=== PATIENT | male | born 1970 | race Caucasian/White ===

== ENCOUNTER 2022-11-09 18:47 | Emergency (ER) | payer MEDICARE, SELFPAY ==
[2022-11-09] VITALS (7 sets, daily range): BP systolic 130–167; BP diastolic 83–104; PULSE 86–144; RESP 18–29; TEMP 36.2; O2SAT 96–98; BMI 29.8
--- NOTE | 2022-11-09 18:55 | EDS_ITS ---
HPI History of Present Illness Chief Complaint: Unresponsive Informant: EMS Onset/Context/Timing Onset: Today Context: Sudden Onset Timing: Continuous Quality: Tonic-clonic Location: Generalized Worsened by: Nothing Relieved by: Narcan Narrative Narrative: Presents with unresponsiveness. EMS was called for possible stroke. Patient has a history of a prior stroke with left-sided deficits. Upon EMS arrival patient was unresponsive. EMS administered 2 mg of Narcan the patient became more awake and alert. Patient had no new neurodeficits by EMS. Upon transfer to the emergency department the patient had another episode where he became more unresponsive. EMS administered a repeat dose of Narcan. Patient had a seizure after this. Patient does have a history of seizure disorder per EMS. Patient currently is unresponsive and is postictal. Patient is maintaining his own airway. Patient is nonverbal. EMS also reports patient does have a history of substance abuse. EMS states that the seizure was generalized and tonic-clonic. PFSH PFS Medical History unable to obtain unable to obtain Home Medications amlodipine 10 mg tablet 10 mg PO DAILY 11/09/22 [History Last Taken Unknown] gabapentin 300 mg capsule 300 mg PO BID 11/09/22 [History Last Taken Unknown] gabapentin 300 mg capsule 300 mg PO QHS 11/09/22 [History Last Taken Unknown] hydrochlorothiazide 12.5 mg capsule 12.5 mg PO DAILY 11/09/22 [History Last Taken Unknown] lisinopril 40 mg tablet 40 mg PO BID 11/09/22 [History Last Taken Unknown] sertraline 100 mg tablet 100 mg PO DAILY 11/09/22 [History Last Taken Unknown] Allergy/AdvReac Type Severity Reaction Status Date / Time No Known Allergies Allergy Verified 11/09/22 20:30 Surgical History unable to obtain unable to obtain Social History Smoking Status: Unknown if ever smoked ROS ROS ED Review of Systems ROS Unobtainable: due to mental condition and due to mental status EXAM Physical Exam Const Vital Signs: 11/09/22 18:52 11/09/22 19:08 11/09/22 19:09 Temperature 97.1 F L Temperature Source Temporal Pulse Rate 144 H 137 H Respiratory Rate 25 H 29 H Blood Pressure 167/102 H 130/104 H Blood Pressure Mean 123 112 Pulse Ox 96 97 98 Oxygen Delivery Method Non-Rebreather Non-Rebreather Non-Rebreather Oxygen Flow Rate (L/min) 15 15 11/09/22 19:15 11/09/22 19:44 11/09/22 21:19 Temperature Temperature Source Pulse Rate 86 Respiratory Rate 21 H Blood Pressure 135/83 H Blood Pressure Mean 100 Pulse Ox 97 98 Oxygen Delivery Method Non-Rebreather Nasal Cannula Nasal Cannula Oxygen Flow Rate (L/min) 15 5 3 Positive well nourished and well developed General Appearance ED: well developed HEENT Reports moist mucous membranes HEENT Narrative: There is a superficial abrasion over the left lateral aspect of the tongue. There is no gapping of the wound margins. There is some mild bleeding noted. Chest Wall inspection of chest normal and palpation of chest normal Resp normal respiratory effort Auscultation: rhonchi Cardio regular rhythm Rate: tachycardic GI non-distended Auscultation: normoactive bowel sounds Palpation: soft Psych Mood & Affect: depressed Skin no rashes or lesions noted and no wounds MDM MDM MDM Narrative Medical decision making narrative: Patient was placed on continuous cardiac and pulse oximeter monitors. Patient was placed on nonrebreather mask. IV lines were established. Differential diagnosis includes seizure, stroke, substance abuse, cardiac dysrhythmia, cardiac ischemia, sepsis, pneumonia, and pulmonary embolism. EKG will be obtained to assess for cardiac dysrhythmia and cardiac ischemia. CT scan of the brain will be obtained to assess for cerebral hemorrhage and stroke. CBC will be obtained to assess for leukocytosis and anemia. Comprehensive metabolic profile will be obtained to assess for electrolyte abnormality, renal function, and hepatic function. Troponin will be obtained to assess for cardiac ischemia. 2-hour repeat troponin will be obtained to further assess for cardiac ischemia. Chest x-ray will be obtained to assess for pneumonia. D-dimer will be obtained to assess for pulmonary embolism. Arterial blood gas will be obtained to assess for acid-base status and respiratory status. Lab Data Lab results narrative: CBC was reviewed and showed a leukocytosis of 21.3. Comprehensive metabolic profile was reviewed and showed a creatinine of 1.73 and a BUN of 25. CO2 was 14 and anion gap was 23. Lactate was reviewed and was elevated at 13.9. High- sensitivity troponin was reviewed and was normal at 46. D-dimer was reviewed and was elevated at 3.52. Arterial blood gas was reviewed and shows a pH of 7.243 with a PCO2 of 35.9, PO2 of 185.4, bicarb of 15.5, and oxygen saturation of 99.4% on a nonrebreather mask. After IV fluids, basic metabolic profile was repeated along with lactate. These were reviewed and were improved. Lactate improved to 2.3. CO2 improved to 24. Anion gap was normal. Creatinine was normal at 1.27. Labs: Laboratory Results - last 24 hr 11/09/22 11/09/22 11/09/22 18:55 18:55 18:55 WBC 21.3 H RBC 5.92 Hgb 16.3 Hct 50.7 MCV 85.6 MCH 27.5 MCHC 32.1 RDW Std Deviation 42.6 RDW Coeff of Delfina 13.7 Plt Count 359 MPV 10.3 Immature Gran % (Auto) 1.100 H Neut % (Auto) 72.6 H Lymph % (Auto) 17.7 L [place] % (Auto) 5.5 Eos % (Auto) 2.3 Baso % (Auto) 0.8 Absolute Neuts (auto) 15.4 H Absolute Lymphs (auto) 3.77 Nucleated RBC % 0 D-Dimer Quant (PE/DVT) 3.52 H* Sodium 142 Potassium 3.6 Chloride 105 Carbon Dioxide 14.0 L Anion Gap 23 H BUN 25 H Creatinine 1.73 H Estim Creat Clear Calc 53.58 Est GFR (MDRD) Af Amer 53 L Est GFR (MDRD) Non-Af 44 L BUN/Creatinine Ratio 14.5 Glucose 198 H Lactic Acid Calcium 9.6 Total Bilirubin 0.50 AST 29 ALT 19 Alkaline Phosphatase 93 Troponin I High Sens 46 Total Protein 8.6 H Albumin 4.5 Globulin 4.1 Albumin/Globulin Ratio 1.1 11/09/22 11/09/22 11/09/22 18:55 21:56 22:17 WBC RBC Hgb Hct MCV MCH MCHC RDW Std Deviation RDW Coeff of Delfina Plt Count MPV Immature Gran % (Auto) Neut % (Auto) Lymph % (Auto) [place] % (Auto) Eos % (Auto) Baso % (Auto) Absolute Neuts (auto) Absolute Lymphs (auto) Nucleated RBC % D-Dimer Quant (PE/DVT) Sodium 141 Potassium 4.1 Chloride 107 Carbon Dioxide 24.0 Anion Gap 10 BUN 25 H Creatinine 1.27 Estim Creat Clear Calc 72.98 Est GFR (MDRD) Af Amer 76 Est GFR (MDRD) Non-Af 63 BUN/Creatinine Ratio 19.7 Glucose 91 Lactic Acid 13.9 H* 2.3 H* Calcium 8.8 Total Bilirubin AST ALT Alkaline Phosphatase Troponin I High Sens Total Protein Albumin Globulin Albumin/Globulin Ratio ABG Data ABG results: ABG 11/09/22 19:19 Specimen Type ART Sample Site L BRACHIAL pH 7.24 L Bicarbonate Actual 15.5 L Total CO2 17 Base Excess -12 L O2 Saturation 99 ABG pCO2 35.9 ABG pO2 185 H Matt Test NA O2 Delivery Device NRB Mask Crit Call To/Read Back Yes Blood Gas Notified Whom ED DOC Blood Gas Notified Time 1918 Radiography Chest X-Ray - ED: 1 View, Read by ED Physician, Read by Radiologist and No Acute Disease Diagnostic Testing: Clinical Impression(s) from Imaging Studies Brain CT 11/09/22 19:04 IMPRESSION: There are no acute findings. Chronic involutional changes of the brain. Electronically Signed: El Vizcaino MD at 19:32 EST , Chest X-Ray 11/09/22 19:30 IMPRESSION: No radiographic evidence of acute cardiopulmonary disease. Electronically Signed: El Vizcaino MD at 19:50 EST , Chest CTA 11/09/22 19:48 IMPRESSION: No demonstrated pulmonary embolism or arterial dissection. Electronically Signed: El Vizcaino MD at 21:08 EST , CT scan of the brain was obtained. There is no acute intracranial abnormality. This was interpreted by the radiologist and was also independently reviewed by myself. Portable 1 view chest x-ray was obtained. On my independent interpretation, lung short are clear. There is normal cardiac silhouette. Bony thorax is normal. There is no acute process noted. Radiologist also interpreted the x- ray and agrees. CTA of the chest was obtained because of the elevated D-dimer. On my interpretation, there is no evidence of pulmonary embolism or aortic dissection. There is no pneumothorax. Radiologist also interpreted the CTA of the chest and agrees. EKG Initial EKG: Attestation: I personally reviewed and interpreted this EKG as follows: Interpretation: Sinus Tachycardia (143) and Non-Specific ST Changes Comments: EKG was obtained. On my independent interpretation, it shows a sinus tachycardia with a rate of 143. [place] was normal. There are nonspecific ST-T wave changes in the lateral leads. There is evidence of left ventricular hypertrophy. Prior EKG tracings: not available for review Prior: No Prior Treatment and Re-Evaluation Narrative: Patient's heart rate also improved after 2 L of IV fluids. Patient is feeling better on reevaluation. Patient and family were advised of the findings. Patient and family were advised that the initial lab abnormalities were likely due to the seizure. Patient was instructed to follow-up with his primary care physician and neurologist in 3 to 5 days for reevaluation and possible adjustment of his antiepileptic medications. Patient and family understand and are agreeable with the plan. All questions were answered. Discharge Plan Triage Chief Complaint: Unresponsive ED Provider: Stalin Longo Dx/Rx/DC Orders Clinical Impression: Breakthrough seizure, Seizure disorder, Unresponsive episode Instructions: ED Seizure, Recurrent (Adult) Prescriptions: No Action sertraline 100 mg Tablet 100 mg PO DAILY amlodipine 10 mg Tablet 10 mg PO DAILY hydrochlorothiazide 12.5 mg Capsule 12.5 mg PO DAILY gabapentin 300 mg Capsule 300 mg PO BID gabapentin 300 mg Capsule 300 mg PO QHS lisinopril 40 mg Tablet 40 mg PO BID Primary Care Provider: Care Physician,No Primary Referrals: Care Physician,No Primary [Primary Care Provider] - Doctor,Your [Non-Staff] - 3-5 Days Disposition Disposition: Home, Self Care
--- NOTE | 2022-11-09 19:04 | CT_ITS ---
STUDY: CT BRAIN WITHOUT CONTRAST REASON FOR EXAM: Male, 52 years old. FOUND UNRESPONSIVE-LKW 45 MINS AGO,ALTERED MENTAL STATUS WITH LT SIDED DEFICITS HX:DRUG USE,STROKE,PRIOR CRAINIOTOMY Altered mental status Individualized dose optimization techniques were used for this CT. TECHNIQUE: Transaxial CT imaging of the brain was performed without administration of intravenous contrast material. COMPARISON: None FINDINGS: There are calcifications around the carotid artery. These are noted in the cavernous carotid arteries. There is a craniotomy/craniectomy. Normal soft tissues. Right basal ganglia and parietal lobe encephalomalacia. Compensatory enlargement of the right lateral ventricle. Prior right facial reconstruction plates. There is mild cerebral atrophy with widening of the extra-axial spaces and ventricular dilatation. There are areas of decreased attenuation within the white matter tracts of the supratentorial brain, consistent with microvascular disease changes. Normal basal ganglia and thalami. Normal brainstem. There is mild cerebellar atrophy. There is no intracranial hemorrhage. There are no findings of an acute ischemic infarction. Normal visualized paranasal sinuses. 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 ASPECTS Score for Acute Strokes: 07/16 CT/Brain/Head without Contrast IMPRESSION: There are no acute findings. Chronic involutional changes of the brain. Electronically Signed: El Vizcaino MD at 19:32 EST ,
--- NOTE | 2022-11-09 19:05 | EKG12_ITS ---
Test Reason : UNRESPONSIVE Blood Pressure : / mmHG Vent. Rate : 143 BPM Atrial Rate : 141 BPM P-R Int : 000 ms QRS Dur : 106 ms QT Int : 352 ms P-R-T Axes : 000 038 121 degrees QTc Int : 543 ms Atrial fibrillation Left ventricular hypertrophy with repolarization abnormality ( Narinder product ) Cannot rule out Septal infarct , age undetermined Abnormal ECG No previous ECGs available Confirmed by SUKHWINDER DOMINIQUE, MELANY ([id number]), editor dictionary [place] ([id number]) on 11/12/2022 11:13:15 AM Referred By: XIOMY Confirmed By:MELANY PRETTY MD
[2022-11-09] MEDS: 0.9% Normal Saline 1,000 ML 1000 ML IV ×2 (19:10→21:18)
[2022-11-09 19:16] LABS: Absolute Lymphocyte Count 3.77 X10^3/uL (0.83-4.51); Absolute Neutrophil Count 15.4 X10^3/uL (2.0-7.7); Basophil# 0.17 X10^3/uL; Basophil% 0.8 % (0-1); Eosinophil# 0.48 X10^3/uL; Eosinophils% 2.3 % (0-5); Hematocrit 50.7 % (40-54); Hemoglobin 16.3 g/dL (13.0-16.5); Lymphocyte # 3.77 X10^3/ul (0.83-4.51); Lymphocyte % 17.7 % (19-41); Mean Corp Hgb Conc 32.1 g/dL (32-36); Mean Corpuscular Hgb 27.5 pg (27.0-32.0); Mean Corpuscular Volume 85.6 fL (80-94); Mean Platelet Vol. 10.3 fl (6.2-12.0); Monocyte# 1.16 X10^3/uL; Monocyte% 5.5 % (0-10); NRBC Flagged by Analyzer 0 % (0-5); Neutrophil # 15.44 X10^3/uL (2.7-7.7); Neutrophil % 72.6 % (47-70); Platelet Count 359 K/mm3 (150-450); RBC Distribution Width CV 13.7 % (11.6-14.6); RBC Distribution Width SD 42.6 fl (35.1-43.9); Red Blood Count 5.92 M/mm3 (4.6-6.2); White Blood Count 21.3 K/mm3 (4.4-11.0)
[2022-11-09 19:29] LABS: D-Dimer Quantitative (DVT/PE) 3.52 FEU/ug/m (0.27-0.49)
--- NOTE | 2022-11-09 19:30 | RAD_ITS ---
EXAM: XR CHEST, 1 VIEW CLINICAL INDICATION: Dyspnea TECHNIQUE: Frontal view of the chest. This report was created using [employer] report generation technology. COMPARISON: None. FINDINGS: LUNGS AND PLEURAL SPACES: Unremarkable. No consolidation or edema. No pneumothorax. No effusion. HEART: Unremarkable. Cardiac silhouette not enlarged. MEDIASTINUM: Central airways and mediastinal contour are unremarkable. BONES/JOINTS: Unremarkable. SOFT TISSUES: Unremarkable. RAD/Chest 1 View (Portable) IMPRESSION: No radiographic evidence of acute cardiopulmonary disease. Electronically Signed: El Vizcaino MD at 19:50 EST ,
[2022-11-09 19:31] LABS: ALB/GLOB Ratio 1.1 RATIO (0.9-2.4); AST(SGOT) 29 U/L (15-37); Alanine Aminotransfer ALT/SGPT 19 U/L (16-61); Albumin, Serum 4.5 g/dL (3.2-5.0); Alkaline Phosphatase 93 U/L (45-117); Anion Gap 23 (5-15); BUN 25 mg/dL (7-18); BUN/Creat Ratio 14.5 RATIO (10-20); Calcium,Total 9.6 mg/dL (8.5-10.1); Chloride 105 mmol/L (98-107); Creatinine, Serum 1.73 mg/dL (0.70-1.30); EST Glomerular Filtration Rate 44 mL/min (>60); Est Glom Filt Rate - Afr Amer 53 mL/min (>60); Estimated Creatinine Clearance 53.58 ml/min; Globulin 4.1 g/dL (2.2-4.2); Glucose 198 mg/dL (74-106); Potassium 3.6 mmol/L (3.5-5.1); Protein, Total 8.6 g/dL (6.4-8.2); Sodium Level 142 mmol/L (136-145); Troponin-I HS 46 pg/mL (3.0-78.0)
[2022-11-09 19:33] LABS: Blood Gas Specimen Type ART; O2 Delivery Device NRB Mask; SITE L BRACHIAL
[2022-11-09 19:34] LABS: Base Excess -12 mmol/L (-2 to +2); Bicarbonate 15.5 mmol/L (22-26); PO2 185 mmHG (75-100); SO2 99 % (95-99); Time Given 1919; Total Carbon Dioxide 17 mmol/L; pCO2 35.9 mmHg (35-45); pH 7.24 (7.35-7.45)
[2022-11-09 19:38] LABS: Lactic Acid 13.9 mmol/L (0.4-1.9)
--- NOTE | 2022-11-09 19:45 | ED.RN ---
PT AWAKE, NOT FOLLOWING COMMANDS
--- NOTE | 2022-11-09 19:48 | CT_ITS ---
EXAM: CT ANGIOGRAPHY CHEST WITHOUT AND WITH INTRAVENOUS CONTRAST CLINICAL INDICATION: Elevated D-dimer TECHNIQUE: Helically acquired angiography images were obtained of the chest without and with intravenous contrast. This CT exam was performed using one or more of the following dose reduction techniques: automated exposure control, adjustment of the mA and/or kV according to patient size, and/or use of iterative reconstruction technique. This report was created using [employer] report generation technology. MIP reconstructed images were created and reviewed. CONTRAST: IV 100mL Isovue-370 RADIATION DOSE: CTDIvol = 17.40 mGy, DLP = 489.03 mGy-cm COMPARISON: None. FINDINGS: PULMONARY ARTERIES: Unremarkable. No demonstrated pulmonary embolism or arterial dissection. AORTA: There is atherosclerotic calcification of the aortic arch with tortuosity and elongation of the aortic arch and descending thoracic aorta. Normal in caliber. No evidence of dissection. GREAT VESSELS OF AORTIC ARCH: See above. LUNGS AND PLEURAL SPACES: Unremarkable. No mass. No consolidation or edema. No pleural effusion or thickening. No pneumothorax. HEART: There are calcifications of the coronary arteries. No pericardial effusion. No signs of right heart strain, ratio of right ventricle to left ventricle measures less than 1. MEDIASTINUM: Unremarkable. No mediastinal or hilar adenopathy. Esophagus is unremarkable. No hiatal hernia. THYROID: Unremarkable. No thyroid lesions. BONES/JOINTS: There are multi-level degenerative changes of the thoracic spine. No suspicious lytic or blastic abnormality. CT/CTA Chest W/WO Contrast IMPRESSION: No demonstrated pulmonary embolism or arterial dissection. Electronically Signed: El Vizcaino MD at 21:08 [facility] ,
[2022-11-09] MEDS: LORazepam 2 MG/ML Syringe 1 MG IV (19:59)
[2022-11-09 23:00] LABS: Anion Gap 10 (5-15); BUN 25 mg/dL (7-18); BUN/Creat Ratio 19.7 RATIO (10-20); Calcium,Total 8.8 mg/dL (8.5-10.1); Chloride 107 mmol/L (98-107); Creatinine, Serum 1.27 mg/dL (0.70-1.30); EST Glomerular Filtration Rate 63 mL/min (>60); Est Glom Filt Rate - Afr Amer 76 mL/min (>60); Estimated Creatinine Clearance 72.98 ml/min; Glucose 91 mg/dL (74-106); Potassium 4.1 mmol/L (3.5-5.1); Sodium Level 141 mmol/L (136-145)
[2022-11-09 23:03] LABS: Lactic Acid 2.3 mmol/L (0.4-1.9)
[2022-11-09 23:13] LABS: Reflex Lactate? Y
[2022-11-10 02:01] LABS: Reflex Lactate? Y
== END 2022-11-09 23:40 | disposition home or self-care (01) ==
PROVIDERS: Emergency Provider Emergency Medicine; Visit Provider Emergency Medicine
DX: G40.409 Other generalized epilepsy and epileptic syndromes, not intractable, without status epilepticus (principal); I69.354 Hemiplegia and hemiparesis following cerebral infarction affecting left non-dominant side; I10 Essential (primary) hypertension; Z79.899 Other long term (current) drug therapy
CPT/HCPCS: 36600; 70450; 71045; 71275; 80048; 80053; 82803; 83605; 84484; 85025; 85379; 93005; 96361; 96374; 99285; J7030; Q9967; A4216

== ENCOUNTER 2022-11-14 13:51 | Emergency (ER) | payer MEDICARE, SELFPAY ==
[2022-11-14 13:52] VITALS: BP 150/77; PULSE 76; RESP 16; TEMP 36.6; O2SAT 96; BMI 30.8
--- NOTE | 2022-11-14 14:00 | EKG12_ITS ---
Test Reason : CP Blood Pressure : / mmHG Vent. Rate : 076 BPM Atrial Rate : 076 BPM P-R Int : 192 ms QRS Dur : 094 ms QT Int : 372 ms P-R-T Axes : 041 005 -11 degrees QTc Int : 418 ms Normal sinus rhythm Voltage criteria for left ventricular hypertrophy ( R in aVL , Sokolow-Dee , Narinder product ) Septal infarct, age undetermined ST & T wave abnormality, consider inferior ischemia Abnormal ECG Confirmed by SUKHWINDER DOMINIQUE, MELANY ([id number]), assignment editor WESTLEY ECHAVARRIA ([id number]) on 11/16/2022 10:05:01 AM Referred By: SHAUN Confirmed By:MELANY PRETTY MD
[2022-11-14 14:12] VITALS: O2SAT 96
[2022-11-14 14:14] VITALS: BP 154/93; PULSE 85; RESP 19; O2SAT 97
--- NOTE | 2022-11-14 14:14 | EDS_ITS ---
HPI History of Present Illness Chief Complaint: Chest Pain Narrative Narrative: 52-year-old male past medical history of seizure disorder, quit smoking over 5 years ago, presents with sharp, stabbing chest pain in the center of his chest that has had for the last 2 days. He denies any radiation. No nausea or vomiting. No shortness of breath or diaphoresis. No leg swelling. He denies any exacerbating or alleviating factors. He presents with his mother because of this pain that he has been having and is not sure from what it may be originating. Its been relatively constant. [facility] Medical History Seizure Home Medications amlodipine 10 mg tablet 10 mg PO DAILY 11/09/22 [History Last Taken Unknown] gabapentin 300 mg capsule 300 mg PO BID 11/09/22 [History Last Taken Unknown] gabapentin 300 mg capsule 300 mg PO QHS 11/09/22 [History Last Taken Unknown] hydrochlorothiazide 12.5 mg capsule 12.5 mg PO DAILY 11/09/22 [History Last Taken Unknown] lisinopril 40 mg tablet 40 mg PO BID 11/09/22 [History Last Taken Unknown] sertraline 100 mg tablet 100 mg PO DAILY 11/09/22 [History Last Taken Unknown] Allergy/AdvReac Type Severity Reaction Status Date / Time prochlorperazine AdvReac Other Verified 11/14/22 13:54 [From Compazine] Social History Smoking Status: Unknown if ever smoked ROS ROS ED ROS Narrative Constitutional: No fever, no chills. HEENT: No sore throat. No neck pain. No loss of vision. No rhinorrhea. Cardiovascular: Sharp, stabbing, midsternal chest pain. No palpitations. No pedal edema. Respiratory: No cough, no shortness of breath. Abdominal: No abdominal pain. No nausea. No vomiting. Genitourinary: No dysuria. No hematuria. Musculoskeletal: No myalgias. No arthralgias. Neurologic: No headaches. No dizziness. No lightheadedness. Skin: No rash. No change in color. Psychiatric: No depression. No anxiety. EXAM Physical Exam Narrative Exam Narrative: Afebrile. Vital signs noted. HEENT: Normocephalic. Atraumatic. PERRL, EOMI. Neck soft and supple. No point tenderness or step off. Cardiovascular: Regular rate and rhythm. No murmurs, rubs, or gallops appreciated. Respiratory: No tachypnea. Lungs clear to auscultation bilaterally. Gastrointestinal: Abdomen soft, nontender, with normoactive bowel sounds. No rebound or guarding. Neurological: Awake. Alert. Nonfocal, nonlateralizing. Mild speech impediment. Skin: No rash. Normal color. No pallor. Musculoskeletal: No pedal edema. Full range of motion extremities. Const Vital Signs: 11/14/22 13:52 11/14/22 14:12 11/14/22 14:14 Temperature 97.8 F Temperature Source Temporal Pulse Rate 76 85 Respiratory Rate 16 19 H Blood Pressure 150/77 H 154/93 H Blood Pressure Mean 101 113 Pulse Ox 96 96 97 Oxygen Delivery Method Room Air Room Air Room Air 11/14/22 16:00 Temperature Temperature Source Pulse Rate 69 Respiratory Rate 16 Blood Pressure 134/86 H Blood Pressure Mean 102 Pulse Ox 99 Oxygen Delivery Method Room Air Heart Score History: Slightly/Non-Suspicious ECG: Normal Age: >45 - <65 years Risk Factors: 1 or 2 Risk Factors Troponin: </= Normal Limit Score: 2 MDM MDM MDM Narrative Medical decision making narrative: Chest pain work-up was pursued. EKG was obtained and interpreted by myself which demonstrates normal sinus rhythm at 76 bpm without ectopy or acute ST changes, no STEMI. He does have T wave inversion in leads III and aVF which I think is nonspecific. I will obtain a CBC, BMP, 2-hour troponin for rule out after baseline, and a D-dimer. He was bolused normal saline 1 L intravenously. He does have elevated blood pressure of 150/77, but in review of his medications he is on HCTZ and lisinopril. He is also supposed to be taking amlodipine. I reviewed the patient's prior outpatient records/EMR. He was just seen here 5 days ago for an unresponsive episode. He did have an elevated D-dimer at that time. I did note that CTA was obtained and was -5 days ago. I will cancel this D-dimer as he just had a recent D-dimer and CTA of the chest that was negative. I had called laboratory and canceled it. However, even though I had canceled the order in the computer, laboratory called with the result stating that they ran it anyway, and it is elevated at 1.1. This is lower than before. Once again, I think this is nonspecific and has nothing to do with his chest pain as he just had a CTA within the last 5 days. I do not feel that repeat imaging is indicated. I reviewed his laboratory work. WBC count 11.6, hemoglobin normal at 15.5, hematocrit 44.6, platelet count normal at 283. BMP was reviewed and shows normal sodium of 142, potassium normal at 3.9, BUN slightly elevated at 22 which think is nonspecific and creatinine 1.2. High-sensitivity troponin is 48. I will repeat a 2-hour troponin as although he states this has been relatively constant for the last 2 days, he may have hinted that it was intermittent. His repeat troponin at 2 hours is 50 for a delta of 2, and still normal. At this point in time, I feel he be discharged safely home with follow-up. Return instructions to the emergency department were reviewed. Disposition is discharged home in stable condition. Lab Data Attestation: I reviewed the patient's lab results. Labs: Laboratory Results - last 24 hr 11/14/22 11/14/22 11/14/22 14:09 14:09 14:09 WBC 11.6 H RBC 5.43 Hgb 15.5 Hct 44.6 MCV 82.1 MCH 28.5 MCHC 34.8 D RDW Std Deviation 39.9 RDW Coeff of Delfina 13.6 Plt Count 283 MPV 9.8 Immature Gran % (Auto) 0.300 Neut % (Auto) 80.4 H Lymph % (Auto) 9.1 L [place] % (Auto) 8.4 Eos % (Auto) 1.1 Baso % (Auto) 0.7 Absolute Neuts (auto) 9.3 H Absolute Lymphs (auto) 1.05 Nucleated RBC % 0 D-Dimer Quant (PE/DVT) 1.10 H* Sodium 142 Potassium 3.9 Chloride 107 Carbon Dioxide 27.0 Anion Gap 8 BUN 22 H Creatinine 1.20 Estim Creat Clear Calc 72.66 Est GFR (MDRD) Af Amer 81 Est GFR (MDRD) Non-Af 67 BUN/Creatinine Ratio 18.3 Glucose 97 Calcium 9.6 Troponin I High Sens 48 11/14/22 16:15 WBC RBC Hgb Hct MCV MCH MCHC RDW Std Deviation RDW Coeff of Delfina Plt Count MPV Immature Gran % (Auto) Neut % (Auto) Lymph % (Auto) [place] % (Auto) Eos % (Auto) Baso % (Auto) Absolute Neuts (auto) Absolute Lymphs (auto) Nucleated RBC % D-Dimer Quant (PE/DVT) Sodium Potassium Chloride Carbon Dioxide Anion Gap BUN Creatinine Estim Creat Clear Calc Est GFR (MDRD) Af Amer Est GFR (MDRD) Non-Af BUN/Creatinine Ratio Glucose Calcium Troponin I High Sens 50 Radiography Diagnostic Testing: Clinical Impression(s) from Imaging Studies Chest X-Ray 11/14/22 14:33 IMPRESSION: No acute abnormality is seen. Electronically Signed: Miky Simon MD at 14:49 EST , Discharge Plan Triage Chief Complaint: Chest Pain ED Provider: Brad Powell Dx/Rx/DC Orders Clinical Impression: Chest pain, Seizure disorder, Elevated d-dimer Instructions: ED Chest Pain, Uncertain Cause Prescriptions: No Action sertraline 100 mg Tablet 100 mg PO DAILY amlodipine 10 mg Tablet 10 mg PO DAILY hydrochlorothiazide 12.5 mg Capsule 12.5 mg PO DAILY gabapentin 300 mg Capsule 300 mg PO BID gabapentin 300 mg Capsule 300 mg PO QHS lisinopril 40 mg Tablet 40 mg PO BID Primary Care Provider: Care Physician,No Primary Referrals: Care Physician,No Primary [Primary Care Provider] - Activity Restrictions/Additional Instructions: Follow-up with primary care physician as soon as possible. Disposition Disposition: Home, Self Care
[2022-11-14 14:16] LABS: Absolute Lymphocyte Count 1.05 X10^3/uL (0.83-4.51); Absolute Neutrophil Count 9.3 X10^3/uL (2.0-7.7); Basophil# 0.08 X10^3/uL; Basophil% 0.7 % (0-1); Eosinophil# 0.13 X10^3/uL; Eosinophils% 1.1 % (0-5); Hematocrit 44.6 % (40-54); Hemoglobin 15.5 g/dL (13.0-16.5); Lymphocyte # 1.05 X10^3/ul (0.83-4.51); Lymphocyte % 9.1 % (19-41); Mean Corp Hgb Conc 34.8 g/dL (32-36); Mean Corpuscular Hgb 28.5 pg (27.0-32.0); Mean Corpuscular Volume 82.1 fL (80-94); Mean Platelet Vol. 9.8 fl (6.2-12.0); Monocyte# 0.97 X10^3/uL; Monocyte% 8.4 % (0-10); NRBC Flagged by Analyzer 0 % (0-5); Neutrophil # 9.33 X10^3/uL (2.7-7.7); Neutrophil % 80.4 % (47-70); Platelet Count 283 K/mm3 (150-450); RBC Distribution Width CV 13.6 % (11.6-14.6); RBC Distribution Width SD 39.9 fl (35.1-43.9); Red Blood Count 5.43 M/mm3 (4.6-6.2); White Blood Count 11.6 K/mm3 (4.4-11.0)
[2022-11-14] MEDS: Aspirin 81 MG TAB.CHEW 324 MG PO (14:18)
[2022-11-14] MEDS: 0.9% Normal Saline 1,000 ML 1000 ML IV (14:18)
[2022-11-14 14:33] LABS: Anion Gap 8 (5-15); BUN 22 mg/dL (7-18); BUN/Creat Ratio 18.3 RATIO (10-20); Calcium,Total 9.6 mg/dL (8.5-10.1); Chloride 107 mmol/L (98-107); EST Glomerular Filtration Rate 67 mL/min (>60); Est Glom Filt Rate - Afr Amer 81 mL/min (>60); Estimated Creatinine Clearance 72.66 ml/min; Glucose 97 mg/dL (74-106); Potassium 3.9 mmol/L (3.5-5.1); Sodium Level 142 mmol/L (136-145); Troponin-I HS 48 pg/mL (3.0-78.0)
--- NOTE | 2022-11-14 14:33 | RAD_ITS ---
STUDY: X-RAY CHEST REASON FOR EXAM: Male, 52 years old. Chest pain TECHNIQUE: Single AP portable view of the chest. COMPARISON: Comparison is made with prior study 11/09/2002. FINDINGS: EKG electrodes are seen. The lungs are clear and expanded. There is no demonstrated pleural abnormality. Normal size heart. Calcified left hilar lymph nodes. Normal visualized pulmonary arteries. There is atherosclerotic calcification of the aortic arch with tortuosity. There are diffuse degenerative changes of the visualized thoracic spine. Normal visualized ribs, clavicles, and shoulders. There is no demonstrated abnormality of the visualized soft tissue structures of the upper abdomen. RAD/Chest 1 View (Portable) IMPRESSION: No acute abnormality is seen. Electronically Signed: Miky Simon MD at 14:49 EST ,
[2022-11-14 16:00] VITALS: BP 134/86; PULSE 69; RESP 16; O2SAT 99
[2022-11-14 16:39] LABS: Troponin-I HS 50 pg/mL (3.0-78.0)
[2022-11-14 17:00] VITALS: BP 134/86; PULSE 68; RESP 15; O2SAT 99
== END 2022-11-14 17:14 | disposition home or self-care (01) ==
PROVIDERS: Emergency Provider Emergency Medicine; Visit Provider Emergency Medicine
DX: R07.9 Chest pain, unspecified (principal); G40.909 Epilepsy, unspecified, not intractable, without status epilepticus; Z87.891 Personal history of nicotine dependence; R79.89 Other specified abnormal findings of blood chemistry; R94.31 Abnormal electrocardiogram [ECG] [EKG]; Z79.899 Other long term (current) drug therapy; I10 Essential (primary) hypertension
CPT/HCPCS: 71045; 80048; 84484; 85025; 85379; 93005; 96360; 99284; J7030; A4216

== ENCOUNTER 2023-07-08 08:26 | Emergency (ER) | payer MEDICARE, SELFPAY ==
[2023-07-08 08:27] VITALS: BP 127/66; PULSE 88; RESP 18; TEMP 36.6; O2SAT 98; BMI 27.3
--- NOTE | 2023-07-08 08:54 | RAD_ITS ---
STUDY: X-RAY - LEFT HUMERUS REASON FOR EXAM: Male, 52 years old. Bruising and swelling. TECHNIQUE: 4 view(s) of the humerus. COMPARISON: None. FINDINGS: Subacute impacted fracture of the surgical neck of the proximal humerus with bony callus formation. Nondisplaced fracture of the distal lateral aspect of the left clavicle. Healing fracture of the left third rib. Blunting of the left cusp angle with increased markings at the left lung base. RAD/Humerus min 2 Views IMPRESSION: Healing nondisplaced impacted fracture of the gingival neck of the proximal left humerus with bony callus formation. Nondisplaced fracture of the distal portion of the left clavicle. A healing fracture of the left third rib. Electronically Signed: Miky Simon MD at 9:23 EDT ,
--- NOTE | 2023-07-08 08:58 | EX.ED.UPPERE ---
HPI History of Present Illness Chief Complaint: Upper Extremity Injury Informant: patient Narrative Narrative: 52-year-old male presenting to the emergency department chief complaint of left arm injury. Patient states that for the past 8 days he has had bruising of the left upper extremity. He denies any known injury. He states that he has limited range of motion. Patient does not know previous medical history or medications. I see in the computer that he has had prior stroke with left-sided deficits included flaccid left arm. He also has a reported seizure history. [facility] Medical History (Updated 07/08/23 @ 08:[address] Vinicio Sauceda DO) CVA (cerebral vascular accident) Seizure Home Medications amlodipine 10 mg tablet 10 mg PO DAILY 11/09/22 [History Last Taken Unknown] gabapentin 300 mg capsule 300 mg PO BID 11/09/22 [History Last Taken Unknown] gabapentin 300 mg capsule 300 mg PO QHS 11/09/22 [History Last Taken Unknown] hydrochlorothiazide 12.5 mg capsule 12.5 mg PO DAILY 11/09/22 [History Last Taken Unknown] lisinopril 40 mg tablet 40 mg PO BID 11/09/22 [History Last Taken Unknown] sertraline 100 mg tablet 100 mg PO DAILY 11/09/22 [History Last Taken Unknown] Allergy/AdvReac Type Severity Reaction Status Date / Time prochlorperazine AdvReac Other Verified 07/08/23 08:29 [From Compazine] Social History Smoking Status: Unknown if ever smoked ROS [facility] ED Constitutional Constitutional ED: Denies chills, fever(s) or weight loss Eyes Eyes: Denies change in vision or diplopia ENT ENT ED: Denies ear pain, rhinorrhea or sore throat Cardiovascular Cardiovascular: Denies chest pain, orthopnea, palpitations or racing heartbeat Respiratory/Chest Respiratory/Chest: Denies cough, dyspnea or orthopnea Gastrointestinal Gastrointestinal: Denies abdominal pain, diarrhea, nausea or vomiting Genitourinary Genitourinary ED: Denies dysuria, hematuria or urinary frequency Musculoskeletal Musculoskeletal: Reports other Details: See history of present illness ; Denies arthralgias or myalgias Integumentary Reports other Details: Left arm bruising ; Denies abscess or rash Neurologic Neurologic: Denies headache(s) or weakness Psychiatric Psychiatric: Denies anxiety, depression, suicidal ideation or suicidal thoughts Endocrine Endocrinology: Denies polydipsia, polyphagia or polyuria Allergic/Immunologic Allergic/Immunologic ED: Denies mouth swelling, tongue swelling or urticaria EXAM Physical Exam Const Vital Signs: 07/08/23 08:27 Temperature 97.9 F Temperature Source Temporal Pulse Rate 88 Respiratory Rate 18 Blood Pressure 127/66 H Blood Pressure Mean 86 Pulse Ox 98 Oxygen Delivery Method Room Air Positive well nourished and well developed General Appearance ED: well developed HEENT Reports normocephalic, head/scalp atraumatic and moist mucous membranes Eyes PERRL and EOMs intact bilaterally Neck no lymphadenopathy, supple and no JVD Resp normal respiratory effort and clear to auscultation bilaterally Cardio regular rate, regular rhythm and no murmurs GI normal to inspection, nondistended, normoactive bowel sounds and non-tender Palpation: soft Back/Spine no CVA tenderness and normal ROM Extremity Extremity Narrative: Left arm is flaccid. There appears to be empty sulcus. There is purple and light green ecchymosis along the anterior medial aspect of the left arm and forearm. Mild swelling. Atrophy of musculature. Neuro oriented x3 Sensorium / Orientation: alert Psych mental status grossly normal Mood & Affect: Negative for depressed or tearful Skin no rashes or lesions noted and no wounds MDM MDM MDM Narrative Medical decision making narrative: My interpretation of the plain films of the left shoulder is a impacted fracture of the proximal left humerus. There also appears to be a clavicular fracture and age-indeterminate rib fractures. My interpretation of the plain films of the left humerus is a proximal humerus fracture Patient will be placed in a sling. He will follow-up with orthopedics. I will write for a few [place]. Given the bruising on the anterior chest clavicle and the arm these are most likely recent injuries. He does not recall any known trauma. He states while he has had 2 seizures in 6 years he does not recall having a recent seizure. He has not seen orthopedics locally before. Discharge Plan Triage Chief Complaint: Upper Extremity Injury ED Provider: Vinicio Sauceda Dx/Rx/DC Orders Prescriptions: No Action sertraline 100 mg Tablet 100 mg PO DAILY amlodipine 10 mg Tablet 10 mg PO DAILY hydrochlorothiazide 12.5 mg Capsule 12.5 mg PO DAILY gabapentin 300 mg Capsule 300 mg PO BID gabapentin 300 mg Capsule 300 mg PO QHS lisinopril 40 mg Tablet 40 mg PO BID Primary Care Provider: Care Physician,No Primary Referrals: Care Physician,No Primary [Primary Care Provider] -
--- NOTE | 2023-07-08 09:05 | RAD_ITS ---
STUDY: X-RAY - LEFT SHOULDER REASON FOR EXAM: Male, 52 years old. Injury TECHNIQUE: 2 view(s) of the shoulder. COMPARISON: None. FINDINGS: Normal glenohumeral articulation. Normal acromioclavicular joint. Normal acromion. Nondisplaced fracture of the distal aspect of the left clavicle. Healing nondisplaced impacted fracture of the surgical neck of the proximal left humerus. Healing fractures of the left third and fifth ribs. The soft tissue structures are unremarkable. Normal visualized pulmonary apex. RAD/Shoulder min 2 Views IMPRESSION: Healing nondisplaced impacted fracture of the proximal surgical neck of the left humerus. Left clavicular fracture. Healing left-sided rib fractures. Electronically Signed: Miky Simon MD at 9:24 EDT ,
== END 2023-07-08 10:10 | disposition home or self-care (01) ==
PROVIDERS: Emergency Provider Emergency Medicine; Visit Provider Emergency Medicine
DX: S42.202A Unspecified fracture of upper end of left humerus, initial encounter for closed fracture (principal); I69.352 Hemiplegia and hemiparesis following cerebral infarction affecting left dominant side; G40.909 Epilepsy, unspecified, not intractable, without status epilepticus; Z79.899 Other long term (current) drug therapy; S42.009A Fracture of unspecified part of unspecified clavicle, initial encounter for closed fracture
CPT/HCPCS: 73030; 73060; 99283

== ENCOUNTER 2023-07-16 14:24 | Emergency (ER) | payer MEDICARE, SELFPAY ==
[2023-07-16 14:26] VITALS: BP 145/111; PULSE 111; RESP 18; TEMP 36.5; O2SAT 99
--- NOTE | 2023-07-16 16:35 | RAD_ITS ---
INDICATION: INFECTION EXAMINATION/TECHNIQUE: X-RAY - RIGHT XR Hand 3 VIEWS COMPARISON: FINDINGS: SOFT TISSUES: Soft tissue swelling of the thumb. No radiopaque foreign body. BONES/JOINTS: Dislocation of the thumb at the interphalangeal joint with possible fracture .. No sclerotic or destructive changes observed. RAD/Hand Min 3 Views IMPRESSION: Dislocated thumb at the interphalangeal joint with possible fracture involving the base of the distal phalanx. Electronically Signed: Guillermo Gr DO at 17:06 EDT ,
--- NOTE | 2023-07-16 16:40 | EX.ED.DYSGE1 ---
HPI History of Present Illness Chief Complaint: Cellulitis Informant: patient Narrative Narrative: 52-year-old male presenting to the emergency room with right thumb infection. Patient states that he is unsure of what he did. He states the injury occurred 3 days ago. He notes that today it became substantially worse. He notes swelling and inability to move the thumb pain. He has had prior hemorrhagic stroke affecting the left side of his body. He denies any other medical problems. He was recently seen for a left proximal humerus fracture. He was placed in the sling was to follow-up with orthopedics. He does not know where the sling is at at this time. He is unsure of his last tetanus. [facility] Medical History (Updated 07/16/23 @ 17:[address] Vinicio Sauceda DO) Hemorrhagic stroke Allergy/AdvReac Type Severity Reaction Status Date / Time prochlorperazine Allergy Other Verified 07/16/23 14:26 [From Compazine] Social History Smoking Status: Never smoker ROS ROS ED Constitutional Constitutional ED: Denies chills, fever(s) or weight loss Eyes Eyes: Denies change in vision or diplopia ENT ENT ED: Denies ear pain, rhinorrhea or sore throat Cardiovascular Cardiovascular: Denies chest pain, orthopnea, palpitations or racing heartbeat Respiratory/Chest Respiratory/Chest: Denies cough, dyspnea or orthopnea Gastrointestinal Gastrointestinal: Denies abdominal pain, diarrhea, nausea or vomiting Genitourinary Genitourinary ED: Denies dysuria, hematuria or urinary frequency Musculoskeletal Musculoskeletal: Reports other Details: Right thumb swelling and pain ; Denies arthralgias or myalgias Integumentary Reports rash; Denies abscess Neurologic Neurologic: Denies headache(s) or weakness Psychiatric Psychiatric: Denies anxiety, depression, suicidal ideation or suicidal thoughts Endocrine Endocrinology: Denies polydipsia, polyphagia or polyuria Allergic/Immunologic Allergic/Immunologic ED: Denies mouth swelling, tongue swelling or urticaria EXAM Physical Exam Const Vital Signs: 07/16/23 14:26 07/16/23 17:07 Temperature 97.7 F L Temperature Source Temporal Pulse Rate 111 H 84 Respiratory Rate 18 18 Blood Pressure 145/111 H 146/72 H Blood Pressure Mean 122 96 Pulse Ox 99 97 Oxygen Delivery Method Room Air Room Air Positive well nourished and well developed General Appearance ED: well developed HEENT Reports normocephalic, head/scalp atraumatic and moist mucous membranes Eyes PERRL and EOMs intact bilaterally Neck no lymphadenopathy, supple and no JVD Resp normal respiratory effort and clear to auscultation bilaterally Cardio regular rate, regular rhythm and no murmurs GI normal to inspection, nondistended, normoactive bowel sounds and non-tender Palpation: soft Back/Spine no CVA tenderness and normal ROM Extremity Extremity Narrative: Right thumb is 3-4 times the size of the left thumb. Is diffusely erythematous extending up the dorsum of the hand along the first metacarpal. He has no ability to flex or extend. He notes significant pain with attempted flexion. There is a wound that appears at 1 point it was an L-shaped laceration that is now dehisced with black eschar. This is located on the volar surface. There is purulence draining from this wound. There is no lymphangitic streaking. General Extremety ED: Negative for edema General Extremity: Negative for edema Neuro oriented x3 Neuro Narrative: There are chronic changes associated with a right-sided CVA/left hemiparesis Sensorium / Orientation: alert Psych mental status grossly normal Mood & Affect: Negative for depressed or tearful Skin no rashes or lesions noted and no wounds MDM MDM MDM Narrative Medical decision making narrative: My interpretation of the plain films of the right hand is a fracture dislocation of the distal phalanx of the thumb. Soft tissue swelling noted. Adacel was administered. White count 8.9. Glucose 103. Cultures of the wound were obtained. Blood cultures were obtained. Patient received vancomycin and Zosyn after discussion with hand surgery (Dr. Hercules from [facility]). Patient does not have a preference for tertiary care hospitals and [facility] was contacted who has accepted in transfer. Lab Data Attestation: I reviewed the patient's lab results. Labs: Laboratory Results - last 24 hr 07/16/23 16:20 WBC 8.9 RBC 4.32 L Hgb 12.1 L Hct 35.4 L MCV 81.9 MCH 28.0 MCHC 34.2 RDW Std Deviation 39.8 RDW Coeff of Delfina 13.2 Plt Count 293 MPV 10.0 Immature Gran % (Auto) 0.700 Neut % (Auto) 73.1 H Lymph % (Auto) 14.5 L [place] % (Auto) 9.1 Eos % (Auto) 2.2 Baso % (Auto) 0.4 Absolute Neuts (auto) 6.5 Absolute Lymphs (auto) 1.29 Nucleated RBC % 0 Sodium 138 Potassium 3.4 L Chloride 106 Carbon Dioxide 22.0 Anion Gap 10 BUN 29 H Creatinine 1.18 Estim Creat Clear Calc 76.22 Est GFR (MDRD) Af Amer 83 Est GFR (MDRD) Non-Af 68 BUN/Creatinine Ratio 24.6 H Glucose 103 Calcium 9.5 Total Bilirubin 0.70 AST 12 L ALT 17 Alkaline Phosphatase 172 H Total Protein 7.5 Albumin 3.4 Globulin 4.1 Albumin/Globulin Ratio 0.8 L Radiography Diagnostic Testing: Clinical Impression(s) from Imaging Studies Hand X-Ray 07/16/23 16:35 IMPRESSION: Dislocated thumb at the interphalangeal joint with possible fracture involving the base of the distal phalanx. Electronically Signed: Guillermo Gr DO at 17:06 EDT Reading Location ID and State: [facility] / [place] Tel [phone], Service support , Discharge Plan Triage Chief Complaint: Cellulitis ED Provider: Vinicio Sauceda Dx/Rx/DC Orders Clinical Impression: Open fracture dislocation of right thumb, Cellulitis of left thumb Disposition Disposition: Acute Care Hospital Discharge Location: [facility]
[2023-07-16 17:02] LABS: Absolute Lymphocyte Count 1.29 X10^3/uL (0.83-4.51); Absolute Neutrophil Count 6.5 X10^3/uL (2.0-7.7); Basophil# 0.04 X10^3/uL; Basophil% 0.4 % (0-1); Eosinophils% 2.2 % (0-5); Hematocrit 35.4 % (40-54); Hemoglobin 12.1 g/dL (13.0-16.5); Lymphocyte # 1.29 X10^3/ul (0.83-4.51); Lymphocyte % 14.5 % (19-41); Mean Corp Hgb Conc 34.2 g/dL (32-36); Mean Corpuscular Volume 81.9 fL (80-94); Monocyte# 0.81 X10^3/uL; Monocyte% 9.1 % (0-10); NRBC Flagged by Analyzer 0 % (0-5); Neutrophil # 6.51 X10^3/uL (2.7-7.7); Neutrophil % 73.1 % (47-70); Platelet Count 293 K/mm3 (150-450); RBC Distribution Width CV 13.2 % (11.6-14.6); RBC Distribution Width SD 39.8 fl (35.1-43.9); Red Blood Count 4.32 M/mm3 (4.6-6.2); White Blood Count 8.9 K/mm3 (4.4-11.0)
[2023-07-16 17:07] VITALS: BP 146/72; PULSE 84; RESP 18; O2SAT 97; BMI 26.5
[2023-07-16 17:13] LABS: ALB/GLOB Ratio 0.8 RATIO (0.9-2.4); AST(SGOT) 12 U/L (15-37); Alanine Aminotransfer ALT/SGPT 17 U/L (16-61); Albumin, Serum 3.4 g/dL (3.2-5.0); Alkaline Phosphatase 172 U/L (45-117); Anion Gap 10 (5-15); BUN 29 mg/dL (7-18); BUN/Creat Ratio 24.6 RATIO (10-20); Calcium,Total 9.5 mg/dL (8.5-10.1); Chloride 106 mmol/L (98-107); Creatinine, Serum 1.18 mg/dL (0.70-1.30); EST Glomerular Filtration Rate 68 mL/min (>60); Est Glom Filt Rate - Afr Amer 83 mL/min (>60); Estimated Creatinine Clearance 76.22 ml/min; Globulin 4.1 g/dL (2.2-4.2); Glucose 103 mg/dL (74-106); Potassium 3.4 mmol/L (3.5-5.1); Protein, Total 7.5 g/dL (6.4-8.2); Sodium Level 138 mmol/L (136-145)
--- NOTE | 2023-07-16 17:33 | NURSING ---
MADE INITIAL PHONE CALL TO [facility]. TALKED TO WILLIAM
[2023-07-16] MEDS: Piperacil/Tazobactam 4.5 GM in 0.9% Normal Saline (100mL MB+) 100 ML IV (18:09)
[2023-07-16] MEDS: Diphth,Pertuss(Acell),Tet Vac 0.5 ML Vial IM (18:44)
[2023-07-16] MEDS: Vancomycin HCl 2,000 MG in 0.9% Normal Saline (500mL Bag) 500 ML 250 MG IV (18:44)
[2023-07-16 19:04] VITALS: BP 145/70; PULSE 80; RESP 18; O2SAT 95
[2023-07-16 20:45] VITALS: BP 118/79; PULSE 74; RESP 16; TEMP 37.2; O2SAT 97
[2023-07-16 21:43] VITALS: BP 118/79; PULSE 74; RESP 16; TEMP 37.6; O2SAT 97
== END 2023-07-16 21:45 | disposition short-term general hospital (02) ==
PROVIDERS: Emergency Provider Emergency Medicine; Visit Provider Emergency Medicine
DX: S62.521B Displaced fracture of distal phalanx of right thumb, initial encounter for open fracture (principal); I69.352 Hemiplegia and hemiparesis following cerebral infarction affecting left dominant side; Z23 Encounter for immunization; L03.011 Cellulitis of right finger
CPT/HCPCS: 73130; 80053; 85025; 87040; 87070; 87077; 87186; 87205; 90471; 96365; 96366; 96367; 99283; J7040; J7050; A4216

== ENCOUNTER 2023-07-24 21:07 | Inpatient (IN) | payer MEDICARE, MEDICAID, SELFPAY ==
[2023-07-24 21:39] VITALS: BP 146/71; PULSE 55; RESP 16; TEMP 37.2; O2SAT 97; BMI 26.9
--- NOTE | 2023-07-24 21:39 | PCM.HP.STD ---
HPI - General General Date of Admission: 07/24/23 Date of Service: 07/25/23 Chief Complaint: Here for rehabilitation, intravenous antibiotics. HPI Narrative 07/16/2023 DINA BANKS, is a 52 Male who presents to [facility] Emergency Department for cellulitis. Right thumb infection, injury 3 days ago, infection worse. Swelling, unable to move right thumb. Recent left proximal humerus fracture, treated with sling. X-ray shows right thumb dislocation/fracture. Adacel given, WBC 8.9, cultures sent, blood cultures sent. Vancomycin, Zosyn given. Transfer to [facility] for Ortho Hand consultation. 07/16/2023 Admit to [facility]. 07/17/2023 Dr. Hercules performed irrigation thumb with excisional debridement skin subtendon tissue 5cm x 2cm. Irrigation of IP joint right thumb. Reduction with pinning of IP joint. Vancomycin/Zosyn right thumb cellulitis. IV fluids for high anion gap metabolic acidosis. 07/18/2023 Echo LV size normal. Left ventricular systolic function normal. EF 75%. Moderately severe mitral valve regurgitation. 07/22/2023 Continue IV Ertapenem thru 08/28/2023. 07/17/2023 Right hand tissue culture MSSA, E. Cloacae, Pseudo escherichia vulneris. PICC line ordered. 07/24/2023 Admit to TCU with debility, here for rehablitation, strengthening, intravenous antibiotics, prior to discharge home alone. [facility] Medical History (Updated 07/24/23 @ 21:[address] Rasheed Thomason MD) Cellulitis of right thumb Debility Dysarthria Expressive aphasia Hemorrhagic stroke Left hemiparesis Allergy/AdvReac Type Severity Reaction Status Date / Time prochlorperazine Allergy Other Verified 07/16/23 14:26 [From Compazine] Social History (Updated 07/24/23 @ 21:[address] Rasheed Thomason MD) household members: none Smoking Status: Never smoker alcohol intake: never substance use type: does not use ROS Constitutional Constitutional: Denies chills, fever(s) or weight gain ENT HEENT: Denies headache(s), nasal congestion or nasal discharge Cardiovascular Cardiovascular: Denies chest pain or palpitations Respiratory/Chest Respiratory/Chest: Denies cough, excessive phlegm production or shortness of breath with exertion Gastrointestinal Gastrointestinal: Denies abdominal pain, nausea or vomiting Genitourinary Genitourinary: Denies dysuria Musculoskeletal Musculoskeletal: Denies joint pain or joint swelling Integumentary Integumentary: Denies rash or wounds Neurologic Neurologic: Denies focal weakness, numbness or tingling Psychiatric Psychiatric: Denies anxiety, auditory hallucinations, depression, homicidal ideation or suicidal ideation Physical Exam Const alert General Appearance: cooperative HEENT normocephalic Eyes PERRL and EOMs intact bilaterally Neck supple, no JVD and no carotid bruits Resp normal respiratory effort, normal air movement and clear to auscultation bilaterally Cardio regular rate and regular rhythm GI normal to inspection, nondistended, normoactive bowel sounds, non-tender and non-distended Extremity normal capillary refill Extremity Narrative: Left upper extremity PICC. General Extremity: Negative for edema Skin no rashes or lesions noted General Skin Exam: no breakdown Neuro Neuro Narrative: Left upper extremity dense hemiplegia. Left lower extremity hemiparesis. Expressive aphasia. Dysarthria. Psych affect normal Appearance: appropriate Results Lab / Micro Data 07/25/23 05:23 07/25/23 05:23 Assessment & Plan Assessment/Plan (1) Hemorrhagic stroke: (2) Cellulitis of right thumb: (3) Debility: (4) Left hemiparesis: (5) Dysarthria: (6) Expressive aphasia: (7) Seizure disorder: (8) Depression: PLAN: Plan 52 year old male with below past medical history hospitalized for cellulitis right thumb, dislocation/fracture right thumb, underwent irrigation/debridement/reduction/pinning right thumb 07/17/2023, complicated by high anion gap metabolic acidosis, admitted to TCU with debility, here for rehabilitation, strengthening, intravenous antibiotics, prior to discharge home alone. Debility - PT/OT. Pain - Tylenol 1000mg q6 prn pain (1-3), Tramadol 50mg q6 prn pain (4-5), Oxycodone 5mg q4h prn pain (6-10). Bowel - senna/colace 1 tablet bid, Magnesiu citrate 300ml daily prn. Adult immunization - Administer pneumonia vaccine, covid19 vaccine, flu vaccine as appropriate. DVT prophylaxis - Hold, not necessary, history hemorrhagic stroke. Hypertension - Metoprolol succinate 25mg daily, Amlodipine 10mg daily. Hyperlipidemia - Atorvastatin 40mg qhs. Cellulitis right thumb status post debridement - Ertapenem 1gm iv q24 thru 08/28/2023, Bacitracin ointment topical bid prn, Consult Dr. Arevalo for expert managemet. Vitamin D deficiency - D2 1.25mg per week. Seizure disorder - Gabapentin 300mg tid, Keppra 750mg am, 1500mg pm. Depression - Sertraline 100mg daily, stable chronic nursing home use, GDR not recommended. Hemorrhagic stroke.
--- NOTE | 2023-07-24 21:43 | NURSING ---
notified of patient admit to unit
[2023-07-24 22:24] VITALS: BP 146/71; PULSE 55
[2023-07-24] MEDS: levETIRAcetam 750 MG Tablet 1500 MG PO (22:24)
[2023-07-24] MEDS: Metoprolol(XL)Succ 25 MG Tablet PO (22:24)
[2023-07-24] MEDS: Gabapentin 300 MG Capsule PO (22:26)
[2023-07-25 05:56] LABS: Absolute Lymphocyte Count 1.09 X10^3/uL (0.83-4.51); Absolute Neutrophil Count 3.7 X10^3/uL (2.0-7.7); Basophil# 0.06 X10^3/uL; Eosinophils% 5.2 % (0-5); Hematocrit 31.6 % (40-54); Hemoglobin 10.5 g/dL (13.0-16.5); Lymphocyte # 1.09 X10^3/ul (0.83-4.51); Lymphocyte % 18.8 % (19-41); Mean Corp Hgb Conc 33.2 g/dL (32-36); Mean Corpuscular Hgb 28.2 pg (27.0-32.0); Mean Corpuscular Volume 84.7 fL (80-94); Monocyte# 0.62 X10^3/uL; Monocyte% 10.7 % (0-10); NRBC Flagged by Analyzer 0 % (0-5); Neutrophil # 3.68 X10^3/uL (2.7-7.7); Neutrophil % 63.4 % (47-70); Platelet Count 246 K/mm3 (150-450); RBC Distribution Width CV 13.6 % (11.6-14.6); RBC Distribution Width SD 40.8 fl (35.1-43.9); Red Blood Count 3.73 M/mm3 (4.6-6.2); White Blood Count 5.8 K/mm3 (4.4-11.0)
[2023-07-25] MEDS: Gabapentin 300 MG Capsule PO ×3 (06:12→20:47)
[2023-07-25 06:20] LABS: Anion Gap 4 (5-15); BUN 30 mg/dL (7-18); BUN/Creat Ratio 38.9 RATIO (10-20); Calcium,Total 8.6 mg/dL (8.5-10.1); Chloride 112 mmol/L (98-107); Creatinine, Serum 0.77 mg/dL (0.70-1.30); EST Glomerular Filtration Rate 111 mL/min (>60); Est Glom Filt Rate - Afr Amer 135 mL/min (>60); Estimated Creatinine Clearance 116.81 ml/min; Glucose 93 mg/dL (74-106); Potassium 3.7 mmol/L (3.5-5.1); Sodium Level 141 mmol/L (136-145)
[2023-07-25 08:30] VITALS: BP 120/73; PULSE 58; RESP 16; TEMP 37.1; O2SAT 97
[2023-07-25] MEDS: Ergocalciferol 1.25 MG (50, 000 UNIT) Capsule PO (08:34)
[2023-07-25] MEDS: levETIRAcetam 750 MG Tablet PO (08:34)
[2023-07-25] MEDS: Sertraline 100 MG Tablet PO (08:34)
[2023-07-25] MEDS: amLODIPine 10 MG Tablet PO (08:36)
--- NOTE | 2023-07-25 08:59 | NURSING ---
Patient had follow-up appt scheduled for today @929 in [place]. Called and re-scheduled for next Monday 07/30 @914 in [place]. Patient had this nurse speak with January over the phone, she will try to set up someone to transport him to appointment or get time off work. She took number to TCU to call back once transport figured out.
--- NOTE | 2023-07-25 10:11 | NURSING ---
Labs faxed to ID Dr. Crowley.
[2023-07-25] MEDS: Tuberculin,Purif.prot.deriv. 50 TU/ML Vial 0.1 ML ID (13:31)
--- NOTE | 2023-07-25 14:02 | CASEMGMT ---
Social Work Met with patient to complete initial assessment. Introduced self and role. Verified and updated contacts. Pt confirmed full code. Educated to Medicare benefit and confirmed pt does not have secondary insurance. Informed pt day 21 is 08/13, which is the beginning of $200/day copays. Pt has IV ATB Q24 through 08/27 and a hand dressing. Pt does not have anyone to administer ATB. SW offered outpatient infusion center, if cost friendly, but can assist with options closer to that time. Pt agreed. SW inquired about finances and offered Medicaid, even if to become a secondary insurance. Pt agreed to application. Pt's goal is to return home alone at [facility]. When SW was verifying contacts, a friend Taz Reyna ([phone]) was listed. Pt became immediately upset and adamant about Taz being removed. Throughout further conversation, pt explained this a 22 yo male who asked to borrow pt's car, which pt allowed, but has not been compliant in returning car or car keys to the pt. Pt reports to have repeatedly asked Taz for the last 2-3 weeks. Pt provided further details of Taz, his whereabouts and the description of the car. SW offered to contact [facility] for assistance and pt agreeable. Pt expressed appreciation for assistance. SW sent referral via email to [employer] for Rexly chris. SW phoned HRWillow Whittington and provided him with the information on Taz and the car for contact and return of pt's car/keys. SW will continue to follow. Rekha Westbrook, [place]
--- NOTE | 2023-07-25 15:45 | PCM.CONS.GEN ---
Assessment & Plan Assessment/Plan (1) Cellulitis of right thumb: PLAN: Reviewed [facility] records. On erta until 08/28/23. Weekly bmp, cbc, LFT, and esr. Will follow, thank you HPI Consult Data Date of Consult: 07/25/23 HPI Narrative Reason for Consultation: hand infection HPI Narrative: DINA BANKS, is a 52 M who presented 07/16/23 to [facility] ED with 3 days of progressive R thumb pain/swelling, he did not know the inciting event. Transferred to [facility], taken to OR 07/17/[address] Hercules. Surg cx with MSSA, enterobacter, pseudoescherichia. Abx adjusted to ertapenem, discharged to TCU to continue with stop date 08/28/23. Feeling better. He is L handed. Wound improving. No issues with picc, no fever, no n/v/d. Full ROS performed and neg except as noted above. FORMERLY [facility] Medical History Cellulitis of right thumb Debility Dysarthria Expressive aphasia Hemorrhagic stroke Left hemiparesis Allergy/AdvReac Type Severity Reaction Status Date / Time prochlorperazine Allergy Other Verified 07/16/23 14:26 [From Compazine] Social History (Updated 07/24/23 @ 21:[address] Rasheed Thomason MD) household members: none Smoking Status: Never smoker alcohol intake: never substance use type: does not use Physical Exam Const alert and no apparent distress General Appearance: cooperative HEENT normocephalic and head/scalp atraumatic Eyes PERRL and EOMs intact bilaterally Neck supple and No nodes Resp normal air movement and clear to auscultation bilaterally Cardio regular rate and regular rhythm GI soft to palpation, non-tender and non-distended Extremity General Extremity: Negative for edema Skin Skin Narrative: R hand wrapped, minimal drainage per nursing Neuro CN's II-XII intact bilaterally Lab / Micro Data Attestation: I reviewed the patient's lab results. 07/25/23 05:23 07/25/23 05:23 Labs: Laboratory Results - last 24 hr 07/25/23 05:23: WBC 5.8, RBC 3.73 L, Hgb 10.5 L, Hct 31.6 L, MCV 84.7, MCH 28.2, MCHC 33.2, RDW Std Deviation 40.8, RDW Coeff of Delfina 13.6, Plt Count 246, MPV 9.0, Immature Gran % (Auto) 0.900, Neut % (Auto) 63.4, Lymph % (Auto) 18.8 L, [place] % (Auto) 10.7 H, Eos % (Auto) 5.2 H, Baso % (Auto) 1.0, Absolute Neuts (auto) 3.7, Absolute Lymphs (auto) 1.09, Nucleated RBC % 0, Sodium 141, Potassium 3.7, Chloride 112 H, Carbon Dioxide 25.0, Anion Gap 4 L, BUN 30 H, Creatinine 0.77, Estim Creat Clear Calc 116.81, Est GFR (MDRD) Af Amer 135, Est GFR (MDRD) Non-Af 111, BUN/Creatinine Ratio 38.9 H, Glucose 93, Calcium 8.6
[2023-07-25 16:00] VITALS: BP 132/78; PULSE 69; RESP 14; TEMP 36.7; O2SAT 97
[2023-07-25] MEDS: Ertapenem Sod 1 GM in 0.9% Normal Saline (50mL MB+) 50 ML IV (17:56)
[2023-07-25] MEDS: 0.9% Normal Saline (250mL Bag) 250 ML 15 ML IV (18:45)
[2023-07-25 20:47] VITALS: BP 151/76; PULSE 66
[2023-07-25] MEDS: levETIRAcetam 750 MG Tablet 1500 MG PO (20:47)
[2023-07-25] MEDS: Metoprolol(XL)Succ 25 MG Tablet PO (20:47)
[2023-07-25] MEDS: Atorvastatin Calcium 40 MG Tablet PO (20:47)
[2023-07-25] MEDS: Senna/Docusate Sodium 1 Tablet PO (20:48)
[2023-07-26] MEDS: Gabapentin 300 MG Capsule PO ×3 (05:20→20:57)
--- NOTE | 2023-07-26 08:49 | WOUNDNOTE ---
wound photo: right anterior thumb
[2023-07-26 08:51] VITALS: BP 134/76; PULSE 71; RESP 16; TEMP 36.6; O2SAT 97
--- NOTE | 2023-07-26 08:51 | WOUNDNOTE ---
wound photo: right posterior thumb
[2023-07-26] MEDS: levETIRAcetam 750 MG Tablet PO (08:53)
[2023-07-26] MEDS: amLODIPine 10 MG Tablet PO (08:53)
[2023-07-26] MEDS: Sertraline 100 MG Tablet PO (08:54)
[2023-07-26] MEDS: Senna/Docusate Sodium 1 Tablet PO ×2 (08:54→20:57)
--- NOTE | 2023-07-26 11:01 | PHA.CONS_ITS ---
Documented by User: Neo Melgar 07/26/23 11:43 TCU RX Drug Regimen Review Subjective/Objective Subjective/Objective: Subjective: 52 year old male with below past medical history hospitalized for cellulitis right thumb, dislocation/fracture right thumb, underwent irrig ation/debridement/reduction/pinning right thumb 07/17/2023, complicated by high anion gap metabolic acidosis, admitted to TCU with debility, here for rehabilitation, strengthening, intravenous antibiotics, prior to discharge home alone. Objective: Allergies prochlorperazine [From Compazine] Allergy (Verified 07/16/23 14:26) Other unknown Current Medications Generic Name Dose Route Start Last Admin Trade Name Freq PRN Reason Stop Dose Admin Acetaminophen 1,000 mg 07/24/23 22:04 Acetaminophen 500 Mg Tablet PO Q6H PRN PRN Pain Score 1-3 Amlodipine Besylate 10 mg 07/25/23 10:00 07/26/23 08:53 Amlodipine 10 Mg Tablet PO 10 mg DAILY RAND Administration Protocol Atorvastatin Calcium 40 mg 07/25/23 22:00 07/25/23 20:47 Atorvastatin Calcium 40 Mg Tablet PO 40 mg QHS RAND Administration Bacitracin 1 applic 07/24/23 21:26 Bacitracin 15 Gm Tube TOPICAL BID PRN PRN wound care Protocol Ergocalciferol 1.25 mg 07/25/23 10:00 07/25/23 08:34 Ergocalciferol 1.25 Mg (50, 000 Unit) Capsule PO 1.25 mg Q7D RAND Administration Gabapentin 300 mg 07/24/23 22:00 07/26/23 05:20 Gabapentin 300 Mg Capsule PO 300 mg TID RAND Administration Heparin Sodium (Beef Lung) 50 units 07/25/23 08:30 Heparin Pf Lock 10 Units/Ml 50 Units/5 Ml Syringe IV UD PRN PICC Line Heparin Flush Ertapenem 1 gm/ Sodium 60 mls @ 100 mls/hr 07/25/23 17:00 07/25/23 18:44 Chloride IV 08/28/23 23:59 Infused Q24H RAND Infusion Sodium Chloride 250 mls @ 15 mls/hr 07/24/23 23:22 IV .[id number] PRN Additional IVPB Infusion Sodium Chloride 250 mls @ 15 mls/hr 07/24/23 23:22 IV .[id number] PRN Saline Flush Levetiracetam 750 mg 07/25/23 10:00 07/26/23 08:53 Levetiracetam 750 Mg Tablet PO 750 mg 1000 RAND Administration Levetiracetam 1,500 mg 07/24/23 22:00 07/25/23 20:47 Levetiracetam 750 Mg Tablet PO 1,500 mg 2200 RAND Administration Magnesium Citrate 300 ml 07/24/23 22:02 Magnesium Citrate 300 Ml PO DAILY PRN PRN Constipation Metoprolol Succinate 25 mg 07/24/23 22:00 07/25/23 20:47 Metoprolol(Xl)Succ 25 Mg Tablet PO 25 mg DAILY@2200 [facility] Administration Protocol Oxycodone HCl 5 mg 07/24/23 22:02 Oxycodone 5 Mg Tablet PO Q4H PRN PRN Pain Score 6-10 Senna/Docusate Sodium 1 tablet 07/25/23 10:00 07/26/23 08:54 Senna/Docusate Sodium 1 Tablet PO 1 tablet BID RAND Administration Sertraline HCl 100 mg 07/25/23 10:00 07/26/23 08:54 Sertraline 100 Mg Tablet PO 100 mg DAILY RAND Administration Sodium Chloride 10 - 40 ml 07/25/23 08:30 0.9 % Nacl (Sterile) Posiflush 10 Ml IV UD PRN Port access or dressing change Sodium Chloride 10 - 40 ml 07/25/23 08:30 0.9% Saline Lock 10 Ml Syringe IV UD PRN Open End PICC Flush Tramadol HCl 50 mg 07/24/23 22:02 Tramadol 50 Mg Tablet PO Q6H PRN PRN Pain Score 4-5 Tuberculin PPD 0.1 ml 08/01/23 10:00 Tuberculin,Purif.Prot.Deriv. 50 Tu/Ml Vial ID 08/01/23 10:01 X1 ONE Problem List (Updated 07/24/23 @ 21:[address] Rasheed Thomason MD) Depression (Acute) Seizure disorder (Acute) Expressive aphasia (Acute) Dysarthria (Acute) Left hemiparesis (Acute) Hemorrhagic stroke (Acute) Cellulitis of right thumb (Acute) Debility (Acute) Vital Signs Temp Pulse Resp BP Pulse Ox O2 Del Method 98 F 71 16 134/76 H 97 Room Air 07/26/23 08:51 07/26/23 08:51 07/26/23 08:51 07/26/23 08:51 07/26/23 08:51 07/26/23 08:51 Oxygen Delivery Method Room Air Weight: 87.453 kg Body Mass Index (BMI) 26.9 Sodium 141 mmol/L (136-145) 07/25/23 05:23 Potassium 3.7 mmol/L (3.5-5.1) 07/25/23 05:23 Chloride 112 mmol/L (98-107) H 07/25/23 05:23 Carbon Dioxide 25.0 mmol/L (21.0-32.0) 07/25/23 05:23 Anion Gap 4 (5-15) L 07/25/23 05:23 BUN 30 mg/dL (7-18) H 07/25/23 05:23 Creatinine 0.77 mg/dL (0.70-1.30) 07/25/23 05:23 Est GFR (MDRD) Af Amer 135 mL/min (>60) 07/25/23 05:23 Est GFR (MDRD) Non-Af 111 mL/min (>60) 07/25/23 05:23 BUN/Creatinine Ratio 38.9 RATIO (10-20) H 07/25/23 05:23 Glucose 93 mg/dL (74-106) 07/25/23 05:23 Assessment/Plan: 1. Pain: acetaminophen 1000 mg PO Q6H PRN pain (1-3), tramadol 50 mg PO Q6H PRN pain (4-5), oxycodone 5 mg PO Q4H PRN pain (6-10). The patient has not required any PRN doses of any of his pain medications this admission. Please continue to monitor pain levels, PRN medication usage, LFTs (AST/ALT = 12/17 U/L on 07/16/23), renal function (serum creatinine = 0.77 mg/dL with creatinine clearance > 100 mL/min on 07/25/23), for seizures, for drowsiness/dizziness, for constipation, for respiratory depression, sodium level (Na = 141 mmol/L on 07/25/23), and for falls/syncope/ataxia. 2. Bowel: senna/docusate 1 tablet PO BID, magnesium citrate 300 mL PO daily PRN constipation. The patient has not used any PRN doses of magnesium citrate this admission. The patient's last bowel movement was 07/25/23. Please continue to monitor for diarrhea, constipation, and PRN medication usage. 3. Hypertension: metoprolol succinate 25 mg PO daily, amlodipine 10 mg PO daily. Please continue to monitor blood pressure (recent range = 118-146/70-111 mmHg), heart rate (recent range = 55-111 beats/min), for fatigue, and lower extremity edema. The patient's blood pressures have been generally elevated over the past several days. If his blood pressures remain elevated please consider adding an additional blood pressure agent such as lisinopril 10 mg daily. 4. Cellulitis: ertapenem 1 gram IV Q24H through 08/28/23, bacitracin topically ointment BID PRN wound care. The patient has not required any PRN doses of bacitracin so far this admission. Please continue to monitor for PRN medication usage, resolution of infection, WBC count (WBC = 5.8 K/mm3 on 07/25/23), for fevers (recent temps = 97.7-99.7 F), for chills, diarrhea, and renal function (serum creatinine = 0.77 mg/dL with creatinine clearance > 100 mL/min on 07/25/23). 5. Seizure disorder: gabapentin 300 mg PO TID, levetiracetam 750 mg PO Daily, levetiracetam 1500 mg PO QPM. Please continue to monitor for seizures, for lower extremity edema, for agitation, drowsiness, ataxia/syncope/falls, renal function (serum creatinine = 0.77 mg/dL with creatinine clearance > 100 mL/min on 07/25/23), and SI. 6. Hyperlipidemia: atorvastatin 40 mg PO QHS. Please continue to monitor lipid levels (no recent lipid levels documented), LFTs (AST/ALT = 12/17 U/L on 07/16/23), and for myopathies. Please consider ordering lipid levels if clinically indicated as patient does not have recent lipid levels documented. 7. Vitamin D deficiency: ergocalciferol 1.25 mg PO every 7 days. Please continue to monitor for s/s of vitamin D deficiency as well as vitamin D levels (no recent vitamin D level documented). Assessment/Plan for indications treated with psychotropic medications: 1. Depression: sertraline 100 mg PO daily. Please see provider not regarding stable chronic long-term use, GDR not recommended. Please continue to monitor depression, for SI, sodium levels (Na = 141 mmol/L on 07/25/23), and for s/s of serotonin syndrome. Medical chart and medication regimen reviewed. The following medication irregularities or issues were identified: 1. Hypertension: metoprolol succinate 25 mg PO daily, amlodipine 10 mg PO daily. The patient's blood pressures have been generally elevated over the past several days. If his blood pressures remain elevated please consider adding an additional blood pressure agent such as lisinopril 10 mg daily. 2. Hyperlipidemia: atorvastatin 40 mg PO QHS. Please consider ordering lipid levels if clinically indicated as patient does not have recent lipid levels documented. Date Date of Note:: 07/26/23 Documented by User: Dr. Rasheed Thomason MD 07/26/23 11:44 TCU RX Drug Regimen Review Provider Comments Provider responsibility Provider Comments to Recommendations by Pharmacy: Agree
--- NOTE | 2023-07-26 12:13 | NURSING ---
Patient requested arm to be soaked after eating lunch, order will be completed at a later time.
--- NOTE | 2023-07-26 12:19 | NURSING ---
Retail Greeting Card Merchandiser Note; Activity Asset: Saloni Parson is independent in his choice of daily activities however needs reminded and then can choices if he wants to attend. He will read the newspaper along with word search and watch tv. He did state he welcomes visit from the noc technician. Staff will do 1.1 room visit for extra social, mental and physical well-being and respect his right to say no.
--- NOTE | 2023-07-26 14:10 | NURSING ---
rt thumb soaked in warm soapy water for 20min, rewrapped and splint reapplied
--- NOTE | 2023-07-26 14:14 | CASEMGMT ---
Social Work [facility] hospital states pt is over income for community or B Medicaid and pt was still unsure how much money he had in his bank accounts. Pt would potentially be eligible for SNF Medicaid, and if he stays there for 30 or more days, that could change his WMB qualification status. SW will continue to follow. MEI LindaW
--- NOTE | 2023-07-26 14:21 | NS ---
MST score = 2 - no UBW. No food dislikes. Provided written copy of first choice/daily specials menu w/ instructions on how to order.
[2023-07-26] MEDS: Ertapenem Sod 1 GM in 0.9% Normal Saline (50mL MB+) 50 ML IV (17:01)
[2023-07-26] MEDS: 0.9 % NaCl (Sterile) Posiflush 10 mL IV (17:02)
--- NOTE | 2023-07-26 17:12 | NURSING ---
pt soaking hand per order at this time.
--- NOTE | 2023-07-26 20:49 | NURSING ---
handsoak completed and re-dressed as ordered, patient tolerated well, sutures intact, swelling continues
[2023-07-26 20:57] VITALS: BP 132/69; PULSE 71
[2023-07-26] MEDS: Atorvastatin Calcium 40 MG Tablet PO (20:57)
[2023-07-26] MEDS: Metoprolol(XL)Succ 25 MG Tablet PO (20:57)
[2023-07-26] MEDS: levETIRAcetam 750 MG Tablet 1500 MG PO (20:57)
[2023-07-27] MEDS: Gabapentin 300 MG Capsule PO ×3 (06:02→21:03)
[2023-07-27] MEDS: Sertraline 100 MG Tablet PO (08:42)
[2023-07-27] MEDS: Senna/Docusate Sodium 1 Tablet PO ×2 (08:42→21:03)
[2023-07-27] MEDS: amLODIPine 10 MG Tablet PO (08:42)
[2023-07-27] MEDS: levETIRAcetam 750 MG Tablet PO (08:42)
[2023-07-27 08:44] VITALS: BP 134/59; PULSE 65; RESP 16; TEMP 36.5; O2SAT 95
--- NOTE | 2023-07-27 09:33 | NURSING ---
hand soaked per order and redressed. pt tolerated well. skin peeling to thumb. remains edematous
[2023-07-27 11:38] VITALS: PULSE 63; RESP 16; O2SAT 93
[2023-07-27] MEDS: Ertapenem Sod 1 GM in 0.9% Normal Saline (50mL MB+) 50 ML IV (16:02)
[2023-07-27] MEDS: 0.9 % NaCl (Sterile) Posiflush 10 mL IV (16:02)
[2023-07-27] MEDS: levETIRAcetam 750 MG Tablet 1500 MG PO (21:02)
[2023-07-27 21:03] VITALS: BP 137/68; PULSE 79
[2023-07-27] MEDS: Metoprolol(XL)Succ 25 MG Tablet PO (21:03)
[2023-07-27] MEDS: Atorvastatin Calcium 40 MG Tablet PO (21:03)
[2023-07-27] MEDS: Acetaminophen 500 MG Tablet 1000 MG PO (21:04)
[2023-07-28] MEDS: Gabapentin 300 MG Capsule PO ×3 (05:56→22:26)
[2023-07-28] MEDS: Acetaminophen 500 MG Tablet 1000 MG PO ×2 (05:57→22:24)
[2023-07-28] MEDS: 0.9 % NaCl (Sterile) Posiflush 10 mL IV ×2 (05:57→22:27)
[2023-07-28] MEDS: Sertraline 100 MG Tablet PO (08:50)
[2023-07-28] MEDS: amLODIPine 10 MG Tablet PO (08:50)
[2023-07-28] MEDS: Senna/Docusate Sodium 1 Tablet PO ×2 (08:50→22:26)
[2023-07-28] MEDS: levETIRAcetam 750 MG Tablet PO (08:50)
[2023-07-28 16:00] VITALS: BP 145/84; PULSE 72; RESP 14; TEMP 36.6; O2SAT 96
[2023-07-28] MEDS: Ertapenem Sod 1 GM in 0.9% Normal Saline (50mL MB+) 50 ML IV (18:25)
[2023-07-28 22:25] VITALS: BP 131/72; PULSE 69
[2023-07-28] MEDS: Metoprolol(XL)Succ 25 MG Tablet PO (22:25)
[2023-07-28] MEDS: levETIRAcetam 750 MG Tablet 1500 MG PO (22:25)
[2023-07-28] MEDS: Atorvastatin Calcium 40 MG Tablet PO (22:26)
[2023-07-29] MEDS: Acetaminophen 500 MG Tablet 1000 MG PO (05:37)
[2023-07-29] MEDS: Gabapentin 300 MG Capsule PO ×3 (05:38→22:04)
[2023-07-29] MEDS: levETIRAcetam 750 MG Tablet PO (09:33)
[2023-07-29] MEDS: Sertraline 100 MG Tablet PO (09:34)
[2023-07-29] MEDS: Senna/Docusate Sodium 1 Tablet PO ×2 (09:34→22:04)
[2023-07-29] MEDS: amLODIPine 10 MG Tablet PO (09:34)
[2023-07-29 13:56] VITALS: BP 124/67; PULSE 71; RESP 18; TEMP 36.4; O2SAT 97
[2023-07-29] MEDS: 0.9 % NaCl (Sterile) Posiflush 10 mL IV (16:41)
[2023-07-29] MEDS: 0.9% Normal Saline (250mL Bag) 250 ML 100 ML IV (16:41)
[2023-07-29] MEDS: Ertapenem Sod 1 GM in 0.9% Normal Saline (50mL MB+) 50 ML IV (16:41)
[2023-07-29 22:04] VITALS: BP 136/67; PULSE 79
[2023-07-29] MEDS: Atorvastatin Calcium 40 MG Tablet PO (22:04)
[2023-07-29] MEDS: Metoprolol(XL)Succ 25 MG Tablet PO (22:04)
[2023-07-29] MEDS: levETIRAcetam 750 MG Tablet 1500 MG PO (22:04)
--- NOTE | 2023-07-30 01:36 | NURSING ---
Patient stated that he had his hand soaked and redressed just prior to dinner. Discussed treatment order for right hand/thumb. Dressing is dry, intact at this time, patient did not want to soak hand and have dressing changed. Will continue to monior.
[2023-07-30] MEDS: Gabapentin 300 MG Capsule PO ×3 (05:37→22:30)
--- NOTE | 2023-07-30 08:25 | NURSING ---
Addendum entered by Tracie De La Cruz 07/31/23 10:45: Called and spoke with Camila, she provided days that would work for her to transport patient. Spoke with Dr. Swann's office- appt scheduled for 08/06 @1415 in [place]. Updated Camila and patient. Camila will p/u patient at 1:00 for appt. Original Note: Patient says he does not have transport for appt today. He called Dinora and this RN spoke with her. Dinora said his aunt Camila would be the one who would able to transport him to an appt, her numbers #[phone], #[phone]. This RN called and left a VM with Camila. Called MD office and cancelled appt for today, updated that RN would call back to re-schedule after speaking with Camila about transport.
[2023-07-30] MEDS: 0.9 % NaCl (Sterile) Posiflush 10 mL IV (09:00)
[2023-07-30] MEDS: Sertraline 100 MG Tablet PO (09:00)
[2023-07-30] MEDS: levETIRAcetam 750 MG Tablet PO (09:00)
[2023-07-30] MEDS: amLODIPine 10 MG Tablet PO (09:00)
[2023-07-30] MEDS: Senna/Docusate Sodium 1 Tablet PO ×2 (09:01→22:29)
[2023-07-30] MEDS: COVID VAC 23-24(12UP)(ANDU)/PF 50 MCG/0.5 ML SYRINGE IM (11:00)
[2023-07-30 11:31] VITALS: BMI 27.5
--- NOTE | 2023-07-30 15:07 | CASEMGMT ---
Social Work IDT expressed concern with pt discharging home alone d/t physical and cognitive deficits. Pt does not have any local support systems to assist at DC. ONEL phoned ex- to inquire about involvement and possibly discuss DC plans. Ex- expressed concerns with pt discharging home stating pt has steps to enter his apartment, with only one handrail, and he was struggling prior to admission d/t to stroke deficits. Pt also is sleeping in a loft, on an air mattress, which requires pt climb a ladder to get to. EXW acknowledged pt does not have support in [place] and has been talking to the pt about moving back to [facility] for her to supportive. EXW ideally would like pt to be in a senior housing community or [place]. She agrees pt should not be driving and asked [facility] to revoke his license, but is not aware that happened. EXW states pt has double vision, hx of seizures and agrees his cognition and reflexes are not safe for driving. ONLE discussed application for [employer] and inquired about bank accounts. EXW states pt does not have savings and only funds in the checking is from pt's income. ONEL educated about copay days and amount and the length of IV ATB. EXW knows pt cannot pay for copays. ONEL discussed, if pt is agreeable, for pt to transfer to a SNF in [place], apply for SNF BLAN[employer], get copay coverage and remain for IV ATB and ongoing therapy, while EXW assists with permanent housing in the area. EXW agrees and is appreciative of the help. She does not think pt would be opposed as he has been wanting to move closer to EXW and their 14 yo son. ONEL educated to POC mtg tomorrow and will discuss with pt, then if agreeable, will send SNF list to EXW to make decisions. ONEL sent follow up to [facility] on completing a SNF [facility] application. Will continue to follow. MEI LindaW
[2023-07-30 16:00] VITALS: BP 128/61; PULSE 72; RESP 16; TEMP 36.4; O2SAT 96
[2023-07-30] MEDS: Ertapenem Sod 1 GM in 0.9% Normal Saline (50mL MB+) 50 ML IV (17:54)
[2023-07-30 22:00] VITALS: PULSE 66; RESP 16; O2SAT 97
[2023-07-30 22:29] VITALS: BP 131/69; PULSE 66
[2023-07-30] MEDS: Metoprolol(XL)Succ 25 MG Tablet PO (22:29)
[2023-07-30] MEDS: Atorvastatin Calcium 40 MG Tablet PO (22:30)
[2023-07-30] MEDS: levETIRAcetam 750 MG Tablet 1500 MG PO (22:30)
[2023-07-31 05:55] LABS: Hematocrit 31.5 % (40-54); Hemoglobin 10.6 g/dL (13.0-16.5)
[2023-07-31] MEDS: Gabapentin 300 MG Capsule PO ×3 (06:01→21:14)
[2023-07-31] MEDS: Senna/Docusate Sodium 1 Tablet PO ×2 (08:14→21:14)
[2023-07-31] MEDS: Sertraline 100 MG Tablet PO (08:14)
[2023-07-31] MEDS: levETIRAcetam 750 MG Tablet PO (08:14)
[2023-07-31] MEDS: amLODIPine 10 MG Tablet PO (08:14)
--- NOTE | 2023-07-31 08:42 | NURSING ---
Groundskeeper Supervisor Note; MDS Complete
--- NOTE | 2023-07-31 12:22 | NURSING ---
While doing dressing to right thumb, this nurse noticed open area to tip of thumb and metal piece poking through. Dr. Hercules' office contacted and spoke with nurse Brenda. She requests photos sent of thumb and that she will inform Dr. Hercules and call us back with any new orders. Photos of thumb sent to Dr. Hercules' office via secure email.
--- NOTE | 2023-07-31 13:46 | CASEMGMT ---
Addendum entered by Rekha Westbrook 08/01/23 16:09: SW phoned [facility] again, spoke with admissions. Admissions denies getting referral and prefers email referral. Secure email provided to this worker and sent referral to review. Will continue to follow. Addendum entered by Rekha Westbrook 07/31/23 15:45: SW left VM with admissions at [facility]. Original Note: Social Work IDT met with patient for care plan meeting. Discussed patient's progress in PT/OT/ST/SN. Educated to Medicare benefit. Pt does not have copay coverage. Day 21 begins 08/13. Pt has IV ATB through 08/27. Discussed with pt the conversation with exwife about transferring to SNF in her area and applying for [employer]AN[employer] in a SNF. Pt agreeable. Also discussed revoking drivers license. Pt agreed it's time. SW educated to driving rehab if pt wants to drive again. Pt agreed and appreciative to assistance with DC plan. provided SNF choice of [facility]. Referral made via [employer]. SW will continue to follow. MEI Linda
--- NOTE | 2023-07-31 14:58 | CASEMGMT ---
Social Work BIMS (08/21) and PHQ-2 () completed for MDS assessment. Rekha Westbrook MSW STRATEGIC SOURCING CONSULTANT
[2023-07-31 15:41] VITALS: BP 126/64; PULSE 72; RESP 18; TEMP 36.4; O2SAT 95
--- NOTE | 2023-07-31 15:56 | WOUNDNOTE ---
wound photo: right thumb
--- NOTE | 2023-07-31 15:57 | WOUNDNOTE ---
wound photo: right thumb
[2023-07-31] MEDS: Ertapenem Sod 1 GM in 0.9% Normal Saline (50mL MB+) 50 ML IV (17:13)
[2023-07-31] MEDS: 0.9% Normal Saline (250mL Bag) 250 ML 100 ML IV (17:16)
[2023-07-31] MEDS: 0.9 % NaCl (Sterile) Posiflush 10 mL IV ×2 (17:17→21:15)
--- NOTE | 2023-07-31 17:55 | NURSING ---
HELENA Young from Delsia' office call back and report that metal seen at tip of thumb is a securing pin that will come out eventually and can sometimes poke through skin. She gives order to treat like external pin now and apply hydrogen peroxide TID after each soak and cover. He will receive x-rays at next appointment and they may remove pin early if needed.
[2023-07-31 21:14] VITALS: BP 128/62; PULSE 66
[2023-07-31] MEDS: levETIRAcetam 750 MG Tablet 1500 MG PO (21:14)
[2023-07-31] MEDS: Metoprolol(XL)Succ 25 MG Tablet PO (21:14)
[2023-07-31] MEDS: Atorvastatin Calcium 40 MG Tablet PO (21:14)
[2023-08-01] MEDS: Gabapentin 300 MG Capsule PO ×3 (05:28→20:58)
[2023-08-01 06:26] LABS: Absolute Lymphocyte Count 1.27 X10^3/uL (0.83-4.51); Absolute Neutrophil Count 3.7 X10^3/uL (2.0-7.7); Basophil# 0.05 X10^3/uL; Basophil% 0.9 % (0-1); Eosinophil# 0.15 X10^3/uL; Eosinophils% 2.6 % (0-5); Hematocrit 31.5 % (40-54); Hemoglobin 10.5 g/dL (13.0-16.5); Lymphocyte # 1.27 X10^3/ul (0.83-4.51); Lymphocyte % 21.8 % (19-41); Mean Corp Hgb Conc 33.3 g/dL (32-36); Mean Corpuscular Hgb 27.8 pg (27.0-32.0); Mean Corpuscular Volume 83.3 fL (80-94); Mean Platelet Vol. 9.3 fl (6.2-12.0); Monocyte# 0.67 X10^3/uL; Monocyte% 11.5 % (0-10); NRBC Flagged by Analyzer 0 % (0-5); Neutrophil # 3.65 X10^3/uL (2.7-7.7); Neutrophil % 62.7 % (47-70); Platelet Count 199 K/mm3 (150-450); RBC Distribution Width CV 14.3 % (11.6-14.6); RBC Distribution Width SD 42.7 fl (35.1-43.9); Red Blood Count 3.78 M/mm3 (4.6-6.2); White Blood Count 5.8 K/mm3 (4.4-11.0)
[2023-08-01 06:41] LABS: Anion Gap 5 (5-15); BUN 24 mg/dL (7-18); BUN/Creat Ratio 38.3 RATIO (10-20); Calcium,Total 8.5 mg/dL (8.5-10.1); Chloride 109 mmol/L (98-107); Creatinine, Serum 0.63 mg/dL (0.70-1.30); EST Glomerular Filtration Rate 142 mL/min (>60); Est Glom Filt Rate - Afr Amer 171 mL/min (>60); Estimated Creatinine Clearance 142.76 ml/min; Glucose 85 mg/dL (74-106); Potassium 3.9 mmol/L (3.5-5.1); Sodium Level 139 mmol/L (136-145)
[2023-08-01] MEDS: amLODIPine 10 MG Tablet PO (08:48)
[2023-08-01] MEDS: levETIRAcetam 750 MG Tablet PO (08:48)
[2023-08-01] MEDS: Senna/Docusate Sodium 1 Tablet PO ×2 (08:49→21:00)
[2023-08-01] MEDS: Sertraline 100 MG Tablet PO (08:49)
[2023-08-01] MEDS: Ergocalciferol 1.25 MG (50, 000 UNIT) Capsule PO (08:49)
[2023-08-01] MEDS: Tuberculin,Purif.prot.deriv. 50 TU/ML Vial 0.1 ML ID (10:30)
[2023-08-01 13:40] VITALS: BP 123/75; PULSE 71; RESP 18; TEMP 36.1; O2SAT 95
[2023-08-01] MEDS: Ertapenem Sod 1 GM in 0.9% Normal Saline (50mL MB+) 50 ML IV (17:19)
[2023-08-01] MEDS: 0.9 % NaCl (Sterile) Posiflush 10 mL IV (17:22)
[2023-08-01] MEDS: oxyCODONE 5 MG Tablet PO (20:58)
[2023-08-01] MEDS: Atorvastatin Calcium 40 MG Tablet PO (20:59)
[2023-08-01] MEDS: levETIRAcetam 750 MG Tablet 1500 MG PO (20:59)
[2023-08-01 21:00] VITALS: BP 135/70; PULSE 71
[2023-08-01] MEDS: Metoprolol(XL)Succ 25 MG Tablet PO (21:00)
[2023-08-01 21:06] VITALS: PULSE 71; RESP 16; O2SAT 97
[2023-08-02] MEDS: Gabapentin 300 MG Capsule PO ×3 (05:14→21:12)
[2023-08-02] MEDS: Sertraline 100 MG Tablet PO (08:46)
[2023-08-02] MEDS: levETIRAcetam 750 MG Tablet PO (08:46)
[2023-08-02] MEDS: amLODIPine 10 MG Tablet PO (08:46)
[2023-08-02] MEDS: Senna/Docusate Sodium 1 Tablet PO (08:46)
[2023-08-02 08:47] VITALS: BP 123/60; PULSE 63; RESP 18; O2SAT 95
[2023-08-02 10:00] VITALS: PULSE 72; RESP 18; O2SAT 98
[2023-08-02 12:16] VITALS: TEMP 36.6
--- NOTE | 2023-08-02 12:52 | NURSING ---
Labs faxed to Dr. Crowley.
[2023-08-02] MEDS: 0.9 % NaCl (Sterile) Posiflush 10 mL IV (16:22)
[2023-08-02] MEDS: 0.9% Normal Saline (250mL Bag) 250 ML 15 ML IV (16:22)
[2023-08-02] MEDS: Ertapenem Sod 1 GM in 0.9% Normal Saline (50mL MB+) 50 ML IV (16:22)
[2023-08-02 21:11] VITALS: BP 135/85; PULSE 65
[2023-08-02] MEDS: Metoprolol(XL)Succ 25 MG Tablet PO (21:11)
[2023-08-02] MEDS: Atorvastatin Calcium 40 MG Tablet PO (21:12)
[2023-08-02] MEDS: levETIRAcetam 750 MG Tablet 1500 MG PO (21:12)
[2023-08-03] MEDS: Gabapentin 300 MG Capsule PO ×3 (05:27→21:29)
[2023-08-03 09:30] VITALS: BP 126/56; PULSE 62; RESP 16; TEMP 36.4; O2SAT 98
[2023-08-03] MEDS: levETIRAcetam 750 MG Tablet PO (09:36)
[2023-08-03] MEDS: Sertraline 100 MG Tablet PO (09:36)
[2023-08-03] MEDS: Senna/Docusate Sodium 1 Tablet PO ×2 (09:36→21:30)
[2023-08-03] MEDS: amLODIPine 10 MG Tablet PO (09:36)
[2023-08-03 10:00] VITALS: PULSE 84; RESP 16; O2SAT 98
--- NOTE | 2023-08-03 14:23 | NURSING ---
Soaking patient's right hand as ordered. New dressing will be applied after hand is done soaking in warm/soapy water.
--- NOTE | 2023-08-03 14:48 | NURSING ---
New dressing applied to right hand as ordered.
[2023-08-03] MEDS: Ertapenem Sod 1 GM in 0.9% Normal Saline (50mL MB+) 50 ML IV (17:10)
[2023-08-03] MEDS: 0.9 % NaCl (Sterile) Posiflush 10 mL IV ×3 (17:11→18:20)
--- NOTE | 2023-08-03 18:27 | NURSING ---
labs faxed from 08/01/[address] Crowley per request
--- NOTE | 2023-08-03 20:17 | NURSING ---
Right hand soaked per order, dressing applied per order, patient tolerated well. No c/o pain, denies requests. call light in reach.
[2023-08-03] MEDS: Acetaminophen 500 MG Tablet 1000 MG PO (21:29)
[2023-08-03 21:30] VITALS: BP 131/62; PULSE 62
[2023-08-03] MEDS: levETIRAcetam 750 MG Tablet 1500 MG PO (21:30)
[2023-08-03] MEDS: Metoprolol(XL)Succ 25 MG Tablet PO (21:30)
[2023-08-03] MEDS: Atorvastatin Calcium 40 MG Tablet PO (21:31)
[2023-08-04] MEDS: Gabapentin 300 MG Capsule PO ×3 (05:39→21:45)
[2023-08-04] MEDS: amLODIPine 10 MG Tablet PO (08:25)
[2023-08-04] MEDS: levETIRAcetam 750 MG Tablet PO (08:25)
[2023-08-04] MEDS: Sertraline 100 MG Tablet PO (08:26)
[2023-08-04] MEDS: Senna/Docusate Sodium 1 Tablet PO ×2 (08:26→21:46)
[2023-08-04 08:28] VITALS: BP 143/56; PULSE 58; RESP 16; TEMP 36.4; O2SAT 97
--- NOTE | 2023-08-04 08:45 | NURSING ---
Soaked patient's right hand in warm/soapy water as ordered and applied new dressing. Splint intact.
[2023-08-04] MEDS: 0.9 % NaCl (Sterile) Posiflush 10 mL IV (17:29)
[2023-08-04] MEDS: Ertapenem Sod 1 GM in 0.9% Normal Saline (50mL MB+) 50 ML IV (17:29)
--- NOTE | 2023-08-04 17:44 | NURSING ---
Patient's hand soaked in warm/soapy water as ordered, new dressing applied, splint intact.
[2023-08-04 20:30] VITALS: PULSE 65; RESP 16; O2SAT 97
--- NOTE | 2023-08-04 20:46 | NURSING ---
Patient presents in bed, television on. Offered hand alterations tailor soak per order, patient declined despite education stating it just got done not long ago, I don't need it again tonight. Offered to return later this HS to soak hand per order and apply tx per order, patient states no, I don't need it again tonight. Patient pleasant. watching football. Splint in place, dressing dry and intact, denies pain. No distress observed or reported. Denies requests. Call light in reach.
[2023-08-04 21:46] VITALS: BP 122/64; PULSE 60
[2023-08-04] MEDS: Atorvastatin Calcium 40 MG Tablet PO (21:46)
[2023-08-04] MEDS: Metoprolol(XL)Succ 25 MG Tablet PO (21:46)
[2023-08-04] MEDS: levETIRAcetam 750 MG Tablet 1500 MG PO (21:47)
[2023-08-05] MEDS: Gabapentin 300 MG Capsule PO ×3 (05:51→21:40)
[2023-08-05 06:59] LABS: ALB/GLOB Ratio 0.9 RATIO (0.9-2.4); AST(SGOT) 20 U/L (15-37); Alanine Aminotransfer ALT/SGPT 27 U/L (16-61); Alkaline Phosphatase 163 U/L (45-117); Anion Gap 4 (5-15); BUN 25 mg/dL (7-18); BUN/Creat Ratio 36.6 RATIO (10-20); Calcium,Total 8.9 mg/dL (8.5-10.1); Chloride 110 mmol/L (98-107); Creatinine, Serum 0.68 mg/dL (0.70-1.30); EST Glomerular Filtration Rate 128 mL/min (>60); Est Glom Filt Rate - Afr Amer 155 mL/min (>60); Estimated Creatinine Clearance 132.27 ml/min; Globulin 3.3 g/dL (2.2-4.2); Glucose 83 mg/dL (74-106); Potassium 4.1 mmol/L (3.5-5.1); Protein, Total 6.3 g/dL (6.4-8.2); Sodium Level 141 mmol/L (136-145)
[2023-08-05 11:04] VITALS: BP 130/80; PULSE 59; RESP 17; TEMP 36.2; O2SAT 97
[2023-08-05] MEDS: Sertraline 100 MG Tablet PO (11:07)
[2023-08-05] MEDS: Senna/Docusate Sodium 1 Tablet PO ×2 (11:07→21:41)
[2023-08-05] MEDS: amLODIPine 10 MG Tablet PO (11:07)
[2023-08-05] MEDS: levETIRAcetam 750 MG Tablet PO (11:07)
--- NOTE | 2023-08-05 15:34 | WOUNDNOTE ---
wound photo: right thumb
--- NOTE | 2023-08-05 15:35 | WOUNDNOTE ---
wound photo: right thumb
--- NOTE | 2023-08-05 15:35 | WOUNDNOTE ---
wound photo: right thumb
[2023-08-05] MEDS: 0.9% Normal Saline (250mL Bag) 250 ML 15 ML IV (16:42)
[2023-08-05] MEDS: Ertapenem Sod 1 GM in 0.9% Normal Saline (50mL MB+) 50 ML IV (16:42)
[2023-08-05] MEDS: 0.9 % NaCl (Sterile) Posiflush 10 mL IV (16:42)
[2023-08-05 21:42] VITALS: BP 148/74; PULSE 71
[2023-08-05] MEDS: Metoprolol(XL)Succ 25 MG Tablet PO (21:42)
[2023-08-05] MEDS: levETIRAcetam 750 MG Tablet 1500 MG PO (21:42)
[2023-08-05] MEDS: Atorvastatin Calcium 40 MG Tablet PO (21:42)
[2023-08-06] MEDS: Gabapentin 300 MG Capsule PO ×3 (05:22→21:41)
--- NOTE | 2023-08-06 07:16 | MDS.RN ---
Information for the mds was obtained from review of the clinical record, interview of resident, staff, and direct observation of resident's care. Unable to finalize admission assessment, wendy nicole [facility] [employer] and party plan sales unit advisor aware.
[2023-08-06 08:41] VITALS: BP 148/70; PULSE 69; RESP 16; TEMP 36.5; O2SAT 98
[2023-08-06] MEDS: amLODIPine 10 MG Tablet PO (08:44)
[2023-08-06] MEDS: levETIRAcetam 750 MG Tablet PO (08:44)
[2023-08-06] MEDS: Senna/Docusate Sodium 1 Tablet PO ×2 (08:45→21:41)
[2023-08-06] MEDS: Sertraline 100 MG Tablet PO (08:45)
[2023-08-06 10:12] VITALS: BMI 28.3
--- NOTE | 2023-08-06 10:20 | CASEMGMT ---
Social Work After several email correspondences with [facility] and [facility], pt is accepted at the [facility] and the [facility] application was submitted with case #[id number]. SW updated ex- and pt. Both appreciative. SW inquired to SNF if they wanted pt to transfer sooner than 08/13 or on 08/13. Will await outcome and coordinate accordingly. Rekha Westbrook, STOCK ORDER LISTER TREE PLANTER
--- NOTE | 2023-08-06 10:55 | NURSING ---
faxed 08/05 labs to Tish Munguia physician per her request weekly.
--- NOTE | 2023-08-06 12:06 | CHAPLAIN ---
Type of Pastoral Visit _x__ Initial Visit ___ Follow-up Visit ___ On-call Visit ___ General Patient Visit ___ Spiritual Assessment ___ Family Conference ___ Bereavement ___ Rapid Response ___ Code Blue ___ Other (describe below) Pastoral Care Referral From _x__ Patient ___ Family ___ Nurse ___ Physician ___ Overhead Irrigator ___ Research Professional ___ Other (describe below) Sacrament/Intervention _x__ Active listening ___ Anointing ___ Latter Day ___ Bereavement ___ Communion _x__ Jada exploration ___ _x__ Life review _x__ Prayer ___ Reconciliation ___ Sacrament of Sick ___ Supportive presence ___ Wedding ___ Other (describe below) Pastoral Comments patient is enthusiastic about welcoming this roll cutting operator; pt expresses that God has been his helper; pt talks about his move back to [place] but has not been welcomed back by family; pt has had health issues and debility for seven years but presents with much positive energy and hope; pt states that he can do much even though limited physically; pt gives life review to an extent; pt admits need for clean clothes since he doesn't have access to his belongings at this time; this roll cutting operator made a return visit this day to give clothes to him from donations made to hospital spiritual care office; pt welcomes prayer and future visits too
--- NOTE | 2023-08-06 13:13 | NURSING ---
pt off unit to appt via WC
--- NOTE | 2023-08-06 13:27 | NURSING ---
Hand was not soaked due to ortho appointment at 1415.
--- NOTE | 2023-08-06 16:53 | NURSING ---
pt returned from DR appt with orders to continue soaking 3xday & soft dressing changes. continue until wound completely closed w/no drng in dressings.
[2023-08-06] MEDS: Ertapenem Sod 1 GM in 0.9% Normal Saline (50mL MB+) 50 ML IV (17:06)
[2023-08-06] MEDS: 0.9% Normal Saline (250mL Bag) 250 ML 15 ML IV (17:09)
[2023-08-06] MEDS: 0.9 % NaCl (Sterile) Posiflush 10 mL IV (17:12)
--- NOTE | 2023-08-06 17:14 | NURSING ---
Addendum entered by Tyesha Lr 08/06/23 18:32: redressed rt thumb per order. Original Note: Patient returned to unit from appointment. Gabapentin given at this time due to being off floor for appointment at scheduled time. Hand being soaked as ordered. Ortho took pin out of right thumb.
[2023-08-06 21:40] VITALS: BP 161/75; PULSE 72
[2023-08-06] MEDS: Metoprolol(XL)Succ 25 MG Tablet PO (21:40)
[2023-08-06] MEDS: levETIRAcetam 750 MG Tablet 1500 MG PO (21:41)
[2023-08-06] MEDS: Atorvastatin Calcium 40 MG Tablet PO (21:41)
[2023-08-06 21:47] VITALS: PULSE 72; RESP 16; O2SAT 96
[2023-08-07] MEDS: Gabapentin 300 MG Capsule PO ×3 (05:01→21:55)
[2023-08-07 09:12] VITALS: BP 125/59; PULSE 59; RESP 16; TEMP 36.8; O2SAT 96
[2023-08-07] MEDS: Sertraline 100 MG Tablet PO (09:14)
[2023-08-07] MEDS: Senna/Docusate Sodium 1 Tablet PO (09:14)
[2023-08-07] MEDS: amLODIPine 10 MG Tablet PO (09:14)
[2023-08-07] MEDS: levETIRAcetam 750 MG Tablet PO (09:14)
[2023-08-07 09:19] VITALS: RESP 16; O2SAT 96
--- NOTE | 2023-08-07 13:36 | CCN.REFER ---
Social Work SW followed up with [facility] and has no preference to DC. SW preparing for DC and noted pt has dx of seizure disorder. SW completed PASRR and triggered Level II results. SW phoned ex- to update on PASRR process and confirmed exw can transport. EXW prefers to transport pt over the weekend d/t needing taking off a full day of work on the weekday. SW offered for DC on 08/10, however, cautioned Level II results may not be received in the next two days or even by 08/13. EXW will transport at any time when results are received. EXW expressed understanding. ONEL updated [facility] on request to DC 08/10, but noted PASRR Level II. Will await results to determine DC date. Plan: DC 08/10, pending PASRR results. If not received, DC 08/13. If not received, DC once results are received. DC to [facility], skilled for IV ATB. Rekha Westbrook, JUNIOR PARALEGAL ACCOUNTING TECHNICIAN
[2023-08-07] MEDS: Ertapenem Sod 1 GM in 0.9% Normal Saline (50mL MB+) 50 ML IV (17:32)
[2023-08-07] MEDS: 0.9% Saline Lock 10 ML Syringe IV ×2 (17:33→18:17)
--- NOTE | 2023-08-07 19:08 | NURSING ---
Pt's right hand soaked, incision dried, dressed per order and splint placed back on at 1700.
--- NOTE | 2023-08-07 19:48 | DS.PCM_ITS ---
Providers Date of Admission: 07/24/23 Primary Care Physician: ROSALIA Souza Consultations 07/24/23 21:38 Consult: Onc/Wound/repossessor Routine Comment: Reason for Consult:: right thumb infected Comments:: has bacitracin ordered twice daily PRN 07/24/23 22:02 Consult: Infectious Disease Routine Consulting Provider: Rigo Arevalo Reason for Consult: Polymicrobial cellulitis right thumb s/p debridement irrigation. EMERGENT Consult: No MD Notified: Yes Date Notified: 07/24/23 Time Notified: 22:03 Method of Notification: Text Reason For Visit: RIGHT THUMB DISLOCATED/INFECTION Diagnosis Discharge Diagnosis (1) Cellulitis of right thumb: Status: Acute Code(s): L03.011 - Cellulitis of right finger Plan 52 year old male with below past medical history hospitalized for cellulitis right thumb, dislocation/fracture right thumb, underwent irrigation/debridement/reduction/pinning right thumb 07/17/2023, complicated by high anion gap metabolic acidosis, admitted to TCU with debility, here for rehabilitation, strengthening, intravenous antibiotics, prior to discharge home alone. * Debility - PT/OT. * Pain - Tylenol 1000mg q6 prn pain (1-3), Tramadol 50mg q6 prn pain (4-5), Oxycodone 5mg q4h prn pain (6-10). * Bowel - senna/colace 1 tablet bid, Magnesiu citrate 300ml daily prn. * Adult immunization - Administer pneumonia vaccine, covid19 vaccine, flu vaccine as appropriate. * DVT prophylaxis - Hold, not necessary, history hemorrhagic stroke. * Hypertension - Metoprolol succinate 25mg daily, Amlodipine 10mg daily. * Hyperlipidemia - Atorvastatin 40mg qhs. * Cellulitis right thumb status post debridement - Ertapenem 1gm iv q24 thru 08/28/2023, Bacitracin ointment topical bid prn, Consult Dr. Arevalo for expert managemet. * Vitamin D deficiency - D2 1.25mg per week. * Seizure disorder - Gabapentin 300mg tid, Keppra 750mg am, 1500mg pm. * Depression - Sertraline 100mg daily, stable chronic termite exterminator use, GDR not recommended. * Hemorrhagic stroke. Medications at Discharge Home Medications acetaminophen 500 mg tablet 1,000 mg (2 x 500 mg) PO Q6H PRN PRN Pain Score 1-3 #0 tabs 08/07/23 amlodipine 10 mg tablet 10 mg PO DAILY #0 tabs 08/07/23 atorvastatin 40 mg tablet 40 mg PO QHS #0 tabs 08/07/23 ergocalciferol (vitamin D2) 1,250 mcg (50,000 unit) capsule (Vitamin D2) 1,250 mcg PO Q7D #0 caps 08/07/23 ertapenem 1 gram solution for injection 1 g IV Q24H 15 days #0 grams 08/07/23 gabapentin 300 mg capsule 300 mg PO TID #0 caps 08/07/23 levetiracetam 750 mg tablet 1,500 mg (2 x 750 mg) PO 2200 #0 tabs 08/07/23 levetiracetam 750 mg tablet 750 mg PO 1000 #0 tabs 08/07/23 metoprolol succinate 25 mg tablet,extended release 24 hr 25 mg PO DAILY@2200 #0 tabs 08/07/23 sertraline 100 mg tablet 100 mg PO DAILY #0 tabs 08/07/23 Hospital Course Operations - (See below.) Procedures None Summary of Care Provided Minutes Spent on Discharge: 35 Hospital Course: 52 year old male with below past medical history hospitalized for cellulitis right thumb, dislocation/fracture right thumb, underwent irrigation/debridement/reduction/pinning right thumb 07/17/2023, complicated by high anion gap metabolic acidosis, admitted to TCU with debility, here for rehabilitation, strengthening, intravenous antibiotics, prior to discharge home alone. Discharge 08/13/2023 after PASRR results received, to [facility], skilled for IV antibiotics. Physical Exam Const alert General Appearance: cooperative HEENT normocephalic Eyes PERRL and EOMs intact bilaterally Neck supple, no JVD and no carotid bruits Resp normal respiratory effort, normal air movement and clear to auscultation bilaterally Cardio regular rate and regular rhythm GI normal to inspection, nondistended, normoactive bowel sounds, non-tender and non-distended Extremity normal capillary refill Extremity Narrative: Right hand splint. Left upper extremity PICC line. General Extremity: Negative for edema Skin no rashes or lesions noted General Skin Exam: no breakdown Psych affect normal Appearance: appropriate Weight / BMI Weight Weight: 92.351 kg Body Mass Index (BMI) 28.3 ABG / Lab / Microbiology Data 08/01/23 05:45 08/05/23 05:43 Microbiology: Microbiology 08/07/23 04:58 Nasal Secretion SARS-CoV-2 Antigen (Rapid) - Final 08/04/23 05:36 Nasal Secretion SARS-CoV-2 Antigen (Rapid) - Final 08/01/23 05:20 Nasal Secretion SARS-CoV-2 Antigen (Rapid) - Final 07/29/23 05:40 Nasal Secretion SARS-CoV-2 Antigen (Rapid) - Final 07/26/23 05:23 Nasal Secretion SARS-CoV-2 Antigen (Rapid) - Final D/C Instructions Discharge Diet: No restrictions Discharge Activity: Return to Normal Activity and May Shower Weight Bearing Status: Weight bearing as tolerated Call your doctor if you observe: Fever of 101 or Higher, Inability to urinate, Inability to have a bowel movement, Shortness of breath, Dizziness, Fainting spells, Swelling in the ankles, Chest pain and Uncontrolled pain Additional Instructions: Discharge 08/13/2023 after PASRR results received, to [facility] for IV antibiotics. Please Follow Up With: Dr. Viri Crowley When: As scheduled. Meaningful Use Info Meaningful Use Diagnoses (Choose all that apply): None applicable Discharge Plan Admission Admit Date/Time: 07/24/23 21:07 Primary Reason for Your Visit: Debility. Attending Provider: Rasheed Thomason Chi Primary Care Provider: Jaqueline Edwards NP Consulting Providers: Rigo Arevalo Instructions Additional Instructions / Restrictions: Discharge 08/13/2023 after PASRR results received, to [facility] for IV antibiotics. Discharge Orders/Prescriptions Prescriptions: New atorvastatin 40 mg Tablet 40 mg PO QHS Qty: 0 0RF sertraline 100 mg Tablet 100 mg PO DAILY Qty: 0 0RF acetaminophen 500 mg Tablet 1,000 mg PO Q6H PRN PRN (Reason: Pain Score 1-3) Qty: 0 0RF amlodipine 10 mg Tablet 10 mg PO DAILY Qty: 0 0RF gabapentin 300 mg Capsule 300 mg PO TID Qty: 0 0RF levetiracetam 750 mg Tablet 750 mg PO 1000 Qty: 0 0RF levetiracetam 750 mg Tablet 1,500 mg PO 2200 Qty: 0 0RF metoprolol succinate 25 mg Tablet Extended Release 24 Hr 25 mg PO DAILY@2200 Qty: 0 0RF ergocalciferol (vitamin D2) [Vitamin D2] 1,250 mcg (50,000 unit) Capsule 1,250 mcg PO Q7D Qty: 0 0RF ertapenem 1 gram Recon Soln 1 g IV Q24H 15 Days Qty: 0 0RF Discontinued sertraline 100 mg Tablet 100 mg PO DAILY amlodipine 10 mg Tablet 10 mg PO DAILY hydrochlorothiazide 12.5 mg Capsule 12.5 mg PO DAILY gabapentin 300 mg Capsule 300 mg PO BID gabapentin 300 mg Capsule 300 mg PO QHS lisinopril 40 mg Tablet 40 mg PO BID hydrocodone-acetaminophen [hydrocodone-acetaminophen] 5-325 mg tablet 1 tab PO Q6H PRN PRN (Reason: Pain) 3 Days Qty: 12 0RF Referrals / Follow Up: Jaqueline Edwards NP, AUTOMOTIVE INTERNET SALES CONSULTANT-C [Primary Care Provider] - Disposition Disposition (needs filled in before D/C Order can be placed): Long-Term Facility
--- NOTE | 2023-08-07 19:54 | TREXTCAR_ITS ---
Diet Diet Order/Speech Therapy: 07/25/23 00:24 Diet: Regular - General Food consistency:: Regular Liquid Consistency:: Regular/Thin Is pt able to select menu?: Yes Routine Orders/Code Status Code Status: Full Code Wound(s) Right Thumb: Incision: Wound Type: Surgical Incision Dressing Change: dry dressing Right [place]: Wound Type: Abrasion Left Forearm (puncture from blood draw): Wound Type: Scab Left Ear: Wound Type: Abrasion Right Cheek: Wound Type: Abrasion Left outer ankle: Wound Type: Skin Tear Problem/Diagnosis (1) Cellulitis of right thumb: Status: Acute Code(s): L03.011 - Cellulitis of right finger Plan 52 year old male with below past medical history hospitalized for cellulitis right thumb, dislocation/fracture right thumb, underwent irrigation/debridement/reduction/pinning right thumb 07/17/2023, complicated by high anion gap metabolic acidosis, admitted to TCU with debility, here for rehabilitation, strengthening, intravenous antibiotics, prior to discharge home alone. * Debility - PT/OT. * Pain - Tylenol 1000mg q6 prn pain (1-3), Tramadol 50mg q6 prn pain (4-5), Oxycodone 5mg q4h prn pain (6-10). * Bowel - senna/colace 1 tablet bid, Magnesiu citrate 300ml daily prn. * Adult immunization - Administer pneumonia vaccine, covid19 vaccine, flu vaccine as appropriate. * DVT prophylaxis - Hold, not necessary, history hemorrhagic stroke. * Hypertension - Metoprolol succinate 25mg daily, Amlodipine 10mg daily. * Hyperlipidemia - Atorvastatin 40mg qhs. * Cellulitis right thumb status post debridement - Ertapenem 1gm iv q24 thru 08/28/2023, Bacitracin ointment topical bid prn, Consult Dr. Arevalo for expert managemet. * Vitamin D deficiency - D2 1.25mg per week. * Seizure disorder - Gabapentin 300mg tid, Keppra 750mg am, 1500mg pm. * Depression - Sertraline 100mg daily, stable chronic rat exterminator use, GDR not recommended. * Hemorrhagic stroke. Allergies/Procedures Done in Hospital Allergies prochlorperazine [From Compazine] Adverse Reaction (Verified 07/29/23 10:28) Other Procedures: None Type of Care/Length of Stay Estimated LOS: More Than 30 Days Type of Care Needed: Skilled Rehab Potential: Good Prognosis: Good Additional Orders/Day of Discharge Day of Discharge: 08/13/23 Dietary and Speech Recommendations Dietitian Recommendations/Changes: Continue liberal Regular diet per res request Follow Up Care Please Follow Up With: Dr. Viri Crowley When: [phone] Please Follow Up With: Dr. Delisa wheeler/Katie Meredith When: [phone] Discharge Plan Admission Admit Date/Time: 07/24/23 21:07 Primary Reason for Your Visit: Debility. Attending Provider: Rasheed Thomason Chi Primary Care Provider: Jaqueline Edwards NP Consulting Providers: Rigo Arevalo Instructions Additional Instructions / Restrictions: Discharge 08/13/2023 after PASRR results received, to [facility] for IV antibiotics. Discharge Orders/Prescriptions Prescriptions: New atorvastatin 40 mg Tablet 40 mg PO QHS Qty: 0 0RF sertraline 100 mg Tablet 100 mg PO DAILY Qty: 0 0RF acetaminophen 500 mg Tablet 1,000 mg PO Q6H PRN PRN (Reason: Pain Score 1-3) Qty: 0 0RF amlodipine 10 mg Tablet 10 mg PO DAILY Qty: 0 0RF gabapentin 300 mg Capsule 300 mg PO TID Qty: 0 0RF levetiracetam 750 mg Tablet 750 mg PO 1000 Qty: 0 0RF levetiracetam 750 mg Tablet 1,500 mg PO 2200 Qty: 0 0RF metoprolol succinate 25 mg Tablet Extended Release 24 Hr 25 mg PO DAILY@2200 Qty: 0 0RF ergocalciferol (vitamin D2) [Vitamin D2] 1,250 mcg (50,000 unit) Capsule 1,250 mcg PO Q7D Qty: 0 0RF ertapenem 1 gram Recon Soln 1 g IV Q24H 15 Days Qty: 0 0RF Discontinued sertraline 100 mg Tablet 100 mg PO DAILY amlodipine 10 mg Tablet 10 mg PO DAILY hydrochlorothiazide 12.5 mg Capsule 12.5 mg PO DAILY gabapentin 300 mg Capsule 300 mg PO BID gabapentin 300 mg Capsule 300 mg PO QHS lisinopril 40 mg Tablet 40 mg PO BID hydrocodone-acetaminophen [hydrocodone-acetaminophen] 5-325 mg tablet 1 tab PO Q6H PRN PRN (Reason: Pain) 3 Days Qty: 12 0RF Referrals / Follow Up: Jaqueline Edwards TOP INVENTORY CONTROL EXECUTIVE, TOP INVENTORY CONTROL EXECUTIVE-C [Primary Care Provider] - Disposition Disposition (needs filled in before D/C Order can be placed): Care Home Facility
[2023-08-07] MEDS: levETIRAcetam 750 MG Tablet 1500 MG PO (21:54)
[2023-08-07 21:55] VITALS: BP 141/67; PULSE 74
[2023-08-07] MEDS: Atorvastatin Calcium 40 MG Tablet PO (21:55)
[2023-08-07] MEDS: Metoprolol(XL)Succ 25 MG Tablet PO (21:55)
[2023-08-07] MEDS: 0.9 % NaCl (Sterile) Posiflush 10 mL IV (22:15)
[2023-08-08] MEDS: Gabapentin 300 MG Capsule PO ×3 (05:23→22:02)
[2023-08-08 06:04] LABS: Absolute Lymphocyte Count 1.22 X10^3/uL (0.83-4.51); Absolute Neutrophil Count 3.9 X10^3/uL (2.0-7.7); Basophil# 0.06 X10^3/uL; Eosinophil# 0.23 X10^3/uL; Eosinophils% 3.7 % (0-5); Hematocrit 33.7 % (40-54); Hemoglobin 11.1 g/dL (13.0-16.5); Lymphocyte # 1.22 X10^3/ul (0.83-4.51); Lymphocyte % 19.8 % (19-41); Mean Corp Hgb Conc 32.9 g/dL (32-36); Mean Corpuscular Hgb 27.3 pg (27.0-32.0); NRBC Flagged by Analyzer 0 % (0-5); Neutrophil # 3.85 X10^3/uL (2.7-7.7); Neutrophil % 62.3 % (47-70); Platelet Count 231 K/mm3 (150-450); RBC Distribution Width CV 13.8 % (11.6-14.6); RBC Distribution Width SD 42.2 fl (35.1-43.9); Red Blood Count 4.06 M/mm3 (4.6-6.2); White Blood Count 6.2 K/mm3 (4.4-11.0)
[2023-08-08] MEDS: amLODIPine 10 MG Tablet PO (10:00)
[2023-08-08] MEDS: Sertraline 100 MG Tablet PO (10:00)
[2023-08-08] MEDS: levETIRAcetam 750 MG Tablet PO (10:00)
[2023-08-08] MEDS: Ergocalciferol 1.25 MG (50, 000 UNIT) Capsule PO (10:00)
[2023-08-08] MEDS: Senna/Docusate Sodium 1 Tablet PO (10:00)
--- NOTE | 2023-08-08 11:35 | NURSING ---
rt hand soaked for 15 minutes with antibacterial soap and redressed w\adaptic\2x2 and gauze. splint in place
--- NOTE | 2023-08-08 13:33 | WOUNDNOTE ---
Nursing had just changed the dressing to the right hand. dressing is D&I and splint is intact.
[2023-08-08 13:59] VITALS: BP 129/70; PULSE 72; RESP 16; TEMP 36.6; O2SAT 94
[2023-08-08] MEDS: Ertapenem Sod 1 GM in 0.9% Normal Saline (50mL MB+) 50 ML IV (16:51)
[2023-08-08] MEDS: 0.9 % NaCl (Sterile) Posiflush 10 mL IV (16:51)
[2023-08-08 22:02] VITALS: BP 139/76; PULSE 77
[2023-08-08] MEDS: Atorvastatin Calcium 40 MG Tablet PO (22:02)
[2023-08-08] MEDS: levETIRAcetam 750 MG Tablet 1500 MG PO (22:02)
[2023-08-08] MEDS: Metoprolol(XL)Succ 25 MG Tablet PO (22:02)
[2023-08-09] MEDS: Gabapentin 300 MG Capsule PO ×3 (06:39→22:16)
[2023-08-09 11:16] VITALS: BP 146/77; PULSE 80; RESP 17; TEMP 36.7; O2SAT 94
[2023-08-09] MEDS: amLODIPine 10 MG Tablet PO (11:19)
[2023-08-09] MEDS: Sertraline 100 MG Tablet PO (11:19)
[2023-08-09] MEDS: levETIRAcetam 750 MG Tablet PO (11:19)
[2023-08-09] MEDS: 0.9 % NaCl (Sterile) Posiflush 10 mL IV (16:36)
[2023-08-09] MEDS: 0.9% Normal Saline (250mL Bag) 250 ML 15 ML IV (16:36)
[2023-08-09] MEDS: Ertapenem Sod 1 GM in 0.9% Normal Saline (50mL MB+) 50 ML IV (16:36)
[2023-08-09 22:14] VITALS: BP 149/74; PULSE 78
[2023-08-09] MEDS: Metoprolol(XL)Succ 25 MG Tablet PO (22:14)
[2023-08-09] MEDS: Atorvastatin Calcium 40 MG Tablet PO (22:16)
[2023-08-09] MEDS: levETIRAcetam 750 MG Tablet 1500 MG PO (22:17)
[2023-08-10] MEDS: Gabapentin 300 MG Capsule PO ×3 (05:50→22:33)
[2023-08-10] MEDS: 0.9 % NaCl (Sterile) Posiflush 10 mL IV ×3 (05:50→17:50)
[2023-08-10] MEDS: Sertraline 100 MG Tablet PO (10:16)
[2023-08-10] MEDS: levETIRAcetam 750 MG Tablet PO (10:16)
[2023-08-10] MEDS: amLODIPine 10 MG Tablet PO (10:16)
[2023-08-10 14:11] VITALS: BP 154/77; PULSE 76; RESP 16; TEMP 36.8; O2SAT 93
[2023-08-10] MEDS: Ertapenem Sod 1 GM in 0.9% Normal Saline (50mL MB+) 50 ML IV (17:05)
[2023-08-10 22:00] VITALS: PULSE 78; RESP 16; O2SAT 96
[2023-08-10 22:33] VITALS: BP 141/77; PULSE 76
[2023-08-10] MEDS: Atorvastatin Calcium 40 MG Tablet PO (22:33)
[2023-08-10] MEDS: Metoprolol(XL)Succ 25 MG Tablet PO (22:33)
[2023-08-10] MEDS: Acetaminophen 500 MG Tablet 1000 MG PO (22:34)
[2023-08-10] MEDS: levETIRAcetam 750 MG Tablet 1500 MG PO (22:34)
[2023-08-11] MEDS: Gabapentin 300 MG Capsule PO ×3 (05:39→21:58)
[2023-08-11 10:07] VITALS: BP 137/77; PULSE 77; RESP 14; TEMP 36.7; O2SAT 95
[2023-08-11] MEDS: Sertraline 100 MG Tablet PO (10:09)
[2023-08-11] MEDS: amLODIPine 10 MG Tablet PO (10:09)
[2023-08-11] MEDS: levETIRAcetam 750 MG Tablet PO (10:09)
--- NOTE | 2023-08-11 13:27 | NURSING ---
Hand soaked per order and dressing reapplied
[2023-08-11] MEDS: Ertapenem Sod 1 GM in 0.9% Normal Saline (50mL MB+) 50 ML IV (16:35)
[2023-08-11] MEDS: 0.9 % NaCl (Sterile) Posiflush 10 mL IV (16:36)
[2023-08-11 21:58] VITALS: BP 135/97; PULSE 90
[2023-08-11] MEDS: Metoprolol(XL)Succ 25 MG Tablet PO (21:58)
[2023-08-11] MEDS: levETIRAcetam 750 MG Tablet 1500 MG PO (21:59)
[2023-08-11] MEDS: Atorvastatin Calcium 40 MG Tablet PO (21:59)
[2023-08-12] MEDS: Gabapentin 300 MG Capsule PO ×3 (06:04→21:12)
[2023-08-12 06:46] LABS: ALB/GLOB Ratio 0.6 RATIO (0.9-2.4); AST(SGOT) 14 U/L (15-37); Alanine Aminotransfer ALT/SGPT 17 U/L (16-61); Albumin, Serum 2.5 g/dL (3.2-5.0); Alkaline Phosphatase 119 U/L (45-117); Anion Gap 6 (5-15); BUN 21 mg/dL (7-18); BUN/Creat Ratio 33.3 RATIO (10-20); Calcium,Total 8.6 mg/dL (8.5-10.1); Chloride 107 mmol/L (98-107); Creatinine, Serum 0.63 mg/dL (0.70-1.30); EST Glomerular Filtration Rate 141 mL/min (>60); Est Glom Filt Rate - Afr Amer 170 mL/min (>60); Estimated Creatinine Clearance 142.76 ml/min; Globulin 3.9 g/dL (2.2-4.2); Glucose 95 mg/dL (74-106); Potassium 3.9 mmol/L (3.5-5.1); Protein, Total 6.4 g/dL (6.4-8.2); Sodium Level 137 mmol/L (136-145)
[2023-08-12] MEDS: Sertraline 100 MG Tablet PO (08:13)
[2023-08-12] MEDS: levETIRAcetam 750 MG Tablet PO (08:13)
[2023-08-12] MEDS: amLODIPine 10 MG Tablet PO (08:13)
[2023-08-12] MEDS: Magnesium Citrate 300 ML PO (08:16)
[2023-08-12 08:18] VITALS: BP 138/70; PULSE 66; RESP 16; TEMP 36.3; O2SAT 97
--- NOTE | 2023-08-12 11:23 | NURSING ---
pt c/o not being able to have BM. LBM documented on 08/10/23. Mag citrate given and effective per pt request
--- NOTE | 2023-08-12 15:20 | WOUNDNOTE ---
wound photo: right thumb
--- NOTE | 2023-08-12 15:21 | WOUNDNOTE ---
wound photo: right thumb
--- NOTE | 2023-08-12 15:59 | CASEMGMT ---
Social Work SW spoke with exW that PASRR results have not been received yet and not to plan on transporting pt tomorrow, 08/13, as planned. ExW expressed understanding but noted she is unable to get off work to transport on 08/15. SW noted and will keep exW updated. Rekha Westbrook CERTIFIED SOCIAL WORKERS IN HEALTH CARE PROP WORKER
[2023-08-12] MEDS: Ertapenem Sod 1 GM in 0.9% Normal Saline (50mL MB+) 50 ML IV (16:36)
[2023-08-12] MEDS: 0.9 % NaCl (Sterile) Posiflush 10 mL IV (16:37)
[2023-08-12] MEDS: 0.9% Normal Saline (250mL Bag) 250 ML 15 ML IV (16:39)
[2023-08-12 17:02] LABS: Absolute Lymphocyte Count 1.18 X10^3/uL (0.83-4.51); Absolute Neutrophil Count 3.5 X10^3/uL (2.0-7.7); Basophil# 0.05 X10^3/uL; Basophil% 0.8 % (0-1); Eosinophil# 0.27 X10^3/uL; Eosinophils% 4.5 % (0-5); Hematocrit 32.7 % (40-54); Hemoglobin 10.8 g/dL (13.0-16.5); Lymphocyte # 1.18 X10^3/ul (0.83-4.51); Lymphocyte % 19.5 % (19-41); Mean Corpuscular Volume 81.8 fL (80-94); Mean Platelet Vol. 9.5 fl (6.2-12.0); Monocyte# 1.02 X10^3/uL; Monocyte% 16.9 % (0-10); NRBC Flagged by Analyzer 0 % (0-5); Neutrophil # 3.52 X10^3/uL (2.7-7.7); Neutrophil % 58.1 % (47-70); Platelet Count 267 K/mm3 (150-450); RBC Distribution Width CV 13.2 % (11.6-14.6); RBC Distribution Width SD 39.1 fl (35.1-43.9); White Blood Count 6.1 K/mm3 (4.4-11.0)
[2023-08-12 21:12] VITALS: BP 139/78; PULSE 76
[2023-08-12] MEDS: levETIRAcetam 750 MG Tablet 1500 MG PO (21:12)
[2023-08-12] MEDS: Metoprolol(XL)Succ 25 MG Tablet PO (21:12)
[2023-08-12] MEDS: Atorvastatin Calcium 40 MG Tablet PO (21:13)
[2023-08-13] MEDS: Gabapentin 300 MG Capsule PO ×3 (05:17→21:55)
[2023-08-13 09:24] VITALS: BP 126/69; PULSE 76; RESP 16; TEMP 36.7; O2SAT 94
[2023-08-13] MEDS: Sertraline 100 MG Tablet PO (09:26)
[2023-08-13] MEDS: amLODIPine 10 MG Tablet PO (09:26)
[2023-08-13] MEDS: levETIRAcetam 750 MG Tablet PO (09:27)
[2023-08-13 10:22] VITALS: BMI 28.6
[2023-08-13] MEDS: Ertapenem Sod 1 GM in 0.9% Normal Saline (50mL MB+) 50 ML IV (17:21)
[2023-08-13] MEDS: 0.9 % NaCl (Sterile) Posiflush 10 mL IV (17:22)
[2023-08-13 21:51] VITALS: BP 129/68; PULSE 71
[2023-08-13 21:55] VITALS: BP 129/68; PULSE 71
[2023-08-13] MEDS: Atorvastatin Calcium 40 MG Tablet PO (21:55)
[2023-08-13] MEDS: levETIRAcetam 750 MG Tablet 1500 MG PO (21:55)
[2023-08-13] MEDS: Metoprolol(XL)Succ 25 MG Tablet PO (21:55)
[2023-08-14] MEDS: Gabapentin 300 MG Capsule PO ×3 (05:43→21:26)
[2023-08-14 09:42] VITALS: BP 137/73; PULSE 73; RESP 18; O2SAT 97
[2023-08-14] MEDS: Sertraline 100 MG Tablet PO (09:44)
[2023-08-14] MEDS: levETIRAcetam 750 MG Tablet PO (09:44)
[2023-08-14] MEDS: amLODIPine 10 MG Tablet PO (09:44)
[2023-08-14 10:00] VITALS: RESP 18
[2023-08-14 13:09] VITALS: BP 128/71; PULSE 79; RESP 16; TEMP 36.3; O2SAT 94
[2023-08-14] MEDS: Ertapenem Sod 1 GM in 0.9% Normal Saline (50mL MB+) 50 ML IV (17:23)
[2023-08-14] MEDS: Atorvastatin Calcium 40 MG Tablet PO (21:26)
[2023-08-14] MEDS: levETIRAcetam 750 MG Tablet 1500 MG PO (21:26)
[2023-08-14 21:27] VITALS: BP 130/72; PULSE 78
[2023-08-14] MEDS: Metoprolol(XL)Succ 25 MG Tablet PO (21:27)
[2023-08-15] MEDS: Gabapentin 300 MG Capsule PO ×3 (05:54→20:33)
[2023-08-15 08:21] VITALS: BP 135/83; PULSE 70; RESP 18; TEMP 36.3; O2SAT 93
[2023-08-15] MEDS: Ergocalciferol 1.25 MG (50, 000 UNIT) Capsule PO (08:22)
[2023-08-15] MEDS: amLODIPine 10 MG Tablet PO (08:22)
[2023-08-15] MEDS: levETIRAcetam 750 MG Tablet PO (08:22)
[2023-08-15] MEDS: Sertraline 100 MG Tablet PO (08:22)
[2023-08-15 10:00] VITALS: PULSE 73; O2SAT 92
[2023-08-15] MEDS: 0.9 % NaCl (Sterile) Posiflush 10 mL IV (17:50)
[2023-08-15] MEDS: Ertapenem Sod 1 GM in 0.9% Normal Saline (50mL MB+) 50 ML IV (17:50)
[2023-08-15] MEDS: 0.9% Normal Saline (250mL Bag) 250 ML 15 ML IV (17:50)
[2023-08-15 20:33] VITALS: PULSE 80
[2023-08-15] MEDS: levETIRAcetam 750 MG Tablet 1500 MG PO (20:33)
[2023-08-15] MEDS: Metoprolol(XL)Succ 25 MG Tablet PO (20:33)
[2023-08-15] MEDS: Atorvastatin Calcium 40 MG Tablet PO (20:33)
[2023-08-16] MEDS: Gabapentin 300 MG Capsule PO (06:17)
[2023-08-16] MEDS: 0.9 % NaCl (Sterile) Posiflush 10 mL IV (06:18)
[2023-08-16 08:42] VITALS: BP 126/66; PULSE 72; RESP 16; TEMP 36.3; O2SAT 92
[2023-08-16] MEDS: levETIRAcetam 750 MG Tablet PO (08:46)
[2023-08-16] MEDS: amLODIPine 10 MG Tablet PO (08:46)
[2023-08-16] MEDS: Sertraline 100 MG Tablet PO (08:46)
--- NOTE | 2023-08-16 08:57 | CASEMGMT ---
Social Work Received rule out for PASRR Level II results. SW phoned exW to inquire about transport. ExW can get off work today and transport this date. SW updated IDT, pt and SNF. Plan: DC 08/16, skilled to [facility] MSW NURSE AIDE EVALUATOR
--- NOTE | 2023-08-16 10:32 | NURSING ---
dressing changed to RT hand per order after washing thumb with soap & water.
[2023-08-16 10:37] VITALS: RESP 16; O2SAT 94
[2023-08-16] MEDS: 0.9% Saline Lock 10 ML Syringe IV (11:10)
--- NOTE | 2023-08-16 11:57 | NURSING ---
report called to Harriet at [facility]. Ex to transport at 1300
--- NOTE | 2023-08-16 16:23 | CASEMGMT ---
Social Work BIMS and PHQ-2 completed for MDS assessment. Rekha Westbrook, DATA ENTRY PROCESSOR ENERGY MANAGER
== END 2023-08-16 14:07 | disposition skilled nursing facility (03) | DRG 603 ==
PROVIDERS: Admitting Provider Family Medicine Geriatric Medicine; PCP Internal Medicine; Visit Provider Family Medicine Geriatric Medicine
DX: L03.011 Cellulitis of right finger (principal); I69.354 Hemiplegia and hemiparesis following cerebral infarction affecting left non-dominant side; G40.909 Epilepsy, unspecified, not intractable, without status epilepticus; F32.A Depression, unspecified; E55.9 Vitamin D deficiency, unspecified; I69.322 Dysarthria following cerebral infarction; I69.320 Aphasia following cerebral infarction; S62.501D Fracture of unspecified phalanx of right thumb, subsequent encounter for fracture with routine healing; X58.XXXD Exposure to other specified factors, subsequent encounter; S42.202D Unspecified fracture of upper end of left humerus, subsequent encounter for fracture with routine healing; Z23 Encounter for immunization
CPT/HCPCS: 36415; 80048; 80053; 85014; 85018; 85025; 87811; 90480; 92507; 92523; 92610; 97110; 97112; 97116; 97129; 97130; 97162; 97166; 97530; 97535; J7050; 91322; A4216